=== PATIENT | female | born 1990 | race Caucasian/White ===

== ENCOUNTER → 2017-09-20 | Outpatient (CLI) | payer BC ==
[~2017-09-20] MED LIST: GABA-1220 PO; LEVO50TA6 PO; LNS1 PO; PRAV40TA2 PO; PXL/10 PO
--- NOTE | 2017-09-20 12:22 | DIAGNOSTIC IMAGING REPORT ---
ABD/PELVIS WITHOUT FOR STONE CLINICAL HISTORY: 26 years-old Female presenting with KIDNEY STONES, lower abdominal and right flank pain. TECHNIQUE: Multidetector CT of the abdomen and pelvis was performed without the use of intravenous contrast. IV contrast: None. A dose lowering technique was used consistent with the principles of ALARA (as low as reasonably achievable). COMPARISON: None. CT DOSE (mGy.cm): The estimated cumulative dose is 1786.38 mGy.cm. FINDINGS: Manager Med Surg topogram: Unremarkable. Lung bases: Lungs and pleural spaces clear. Normal heart size. No pericardial or pleural effusion. Liver: Normal morphology. Density consistent with hepatic steatosis. Biliary: No gross biliary ductal dilatation allowing for noncontrast technique. Normal gallbladder. Pancreas: Normal. Spleen: Normal. Adrenal glands: Normal. Kidneys and ureters: Multiple nonobstructing renal calculi noted bilaterally. The largest on the right measuring 3 mm and on the left measuring 3 mm. The remaining calculi are punctate. No hydronephrosis. Normal renal parenchyma allowing for noncontrast technique. Normal ureters. Bladder: Mild circumferential bladder wall thickening suggested. Pelvic organs: An intrauterine device is in place. Otherwise normal appearance of the uterus and ovaries for noncontrast technique. Bowel: Normal appendix. No bowel obstruction. Peritoneal cavity: No free fluid or intraperitoneal gas. Lymph nodes: No gross lymphadenopathy allowing for noncontrast technique. Vasculature: Normal noncontrast appearance. Abdominal wall: Normal. Musculoskeletal: Normal. IMPRESSION: 1. Multiple bilateral nonobstructing renal calculi measuring up to 3 mm on the right and 3 mm on the left. No hydronephrosis. 2. Mild circumferential bladder wall thickening suggested. Correlate with urinalysis to exclude cystitis. 3. Hepatic steatosis. Correlate with liver function tests to exclude steatohepatitis as a cause for abdominal pain. Electronically signed by: Salvatore Correa M.D. 09/20/2017 12:21 PM Dictated Date/Time: 09/20/2017 12:15 PM
== END | disposition home or self-care (01) ==
LOC: C.CTS 11:36 → MERGE 11:36
PROVIDERS: ATTEND Family Medicine
DX: N20.0 Calculus of kidney (principal); K76.0 Fatty (change of) liver, not elsewhere classified; R93.41 Abnormal radiologic findings on diagnostic imaging of renal pelvis, ureter, or bladder

== ENCOUNTER 2017-09-23 20:36 | Emergency (ER) | payer BC ==
[~2017-09-23] VITALS: Ht 165.1 cm; Wt 105.1 kg
[2017-09-23 21:04] VITALS: Ht 165.1 cm; Wt 105.1 kg
[2017-09-23] MEDS ORDERED: ONDANSETRON INJ 2 MG/ML 2 ML VIAL IV STA (22:47)
[2017-09-23] MEDS ORDERED: KETOROLAC TROMETHAMINE 30 MG/ML VIAL IV STA (22:47)
[2017-09-23] MEDS ORDERED: SODIUM CHLORIDE 0.9% 1000ML 1,000 ML IV ONE (23:00)
[2017-09-23 23:17] LABS: BASO % 0.4 %; BASO ABS # 0.04 K/uL (0-0.2); EOS % 1.4 %; EOS ABS # 0.14 K/uL (0-0.5); HEMATOCRIT 40.5 % (37-47); HEMOGLOBIN 14.5 g/dL (12.0-16.0); IG# 0.02 K/uL (0.00-0.02); LYMPH % 37.8 %; MEAN CELL VOLUME 84.7 fL (80-100); MEAN CORPUSCULAR HEMOGLOBIN 30.3 pg (25-34); MEAN CORPUSCULAR HGB CONC 35.8 g/dl (32-36); MONO % 6.5 %; MONO ABS # 0.65 K/uL (0.11-0.59); NEUT % 53.7 %; PLATELET COUNT 282 K/uL (130-400); RED CELL DISTRIBUTION WIDTH CV 12.1 % (11.5-14.5); RED CELL DISTRIBUTION WIDTH SD 37.1 fL (36.4-46.3); WHITE BLOOD COUNT 10.05 K/uL (4.8-10.8)
[2017-09-23] MEDS ORDERED: LNS1 PO (23:25)
[2017-09-23] MEDS ORDERED: PRAV40TA2 PO (23:25)
[2017-09-23] MEDS ORDERED: GABA-1220 PO (23:25)
[2017-09-23] MEDS ORDERED: LEVO50TA6 PO (23:25)
[2017-09-23] MEDS ORDERED: PXL/10 PO (23:25)
[2017-09-23 23:27] LABS: ALBUMIN 4.8 gm/dl (3.4-5.0); CALCIUM 9.9 mg/dl (8.5-10.1); CREATININE 0.76 mg/dl (0.60-1.20); POTASSIUM 3.6 mmol/L (3.5-5.1)
[2017-09-23 23:30] LABS: TOTAL PROTEIN 8.2 gm/dl (6.4-8.2)
[2017-09-24] MEDS ORDERED: NORCO 5/325MG HOME PACK PO ONE (01:15)
[2017-09-24 01:32] VITALS: BP 109/70; PULSE 85; TEMP 37; O2SAT 97
--- NOTE | 2017-09-24 23:11 | EMERGENCY ROOM VISIT NOTE ---
History First contact with patient: 22:38 Chief Complaint: ABDOMINAL PAIN Stated Complaint: PAIN LOWER ABDOMEN AND RIGHT FLANK Nursing Triage Summary: Patient reports lower abdominal pain and right flank pain since last wednesday. Patient had outpatient CT scan wednesday and was told she has multiple stones in kidney and something abnormal on her bladder. Patient tested for bladder infection but came back negative. Patient has also had some vomiting. History of Present Illness The patient is a 26 year old female who presents to the Emergency Room with complaints of right-sided flank pain for the past 5 or 6 days. The patient has a history of kidney stones and had an outpatient CT scan performed 2 days ago without significant findings. The patient has had some dysuria, but evidently also had a normal outpatient UA. She has not been taking anything over-the- counter for her symptoms and rates her current discomfort an 8/10. Her discomfort seems to worsen with certain position changes. She has not had fever or chills. No chest pain, chest tightness, or shortness of breath. Review of Systems More than 10 systems were reviewed and otherwise negative with the exception of history of present illness. Past Medical/Surgical History History of ureteral calculi Family History No pertinent family history Social History Smoking Status: Never Smoker Housing Status: lives with family Current/Historical Medications Scheduled Eszopiclone (Lunesta), 1 MG PO HS Gabapentin (Neurontin), 400 MG PO TID Levothyroxine Sodium (Levothyroxine Sodium), 1 TAB PO DAILY Paroxetine (Paroxetine HCl), 10 MG PO DAILY Pravastatin Sodium (Pravastatin Sodium), 40 MG PO DAILY Physical Exam Vital Signs Date Time Temp Pulse Resp B/P (MAP) Pulse Ox O2 Delivery O2 Flow Rate FiO2 09/24/17 01:32 37.0 85 26 109/70 97 09/24/17 00:11 85 26 97 09/24/17 00:01 109/70 09/23/17 23:57 82 09/23/17 23:56 82 19 96 09/23/17 23:41 84 21 95 09/23/17 23:31 118/78 09/23/17 23:26 71 23 97 09/23/17 23:21 82 21 95 Room Air 09/23/17 23:06 82 94 09/23/17 23:01 132/84 09/23/17 22:53 156/92 09/23/17 21:04 37.0 101 18 133/84 97 Room Air Physical Exam VITALS: Vitals are noted on the nurse's note and reviewed by myself. Vital signs stable. GENERAL: Well-developed, well-nourished, white female, who is in no acute distress and resting comfortably. Patient is cooperative with the examination. HEAD: Normocephalic atraumatic. HEART: Regular rate and rhythm without murmurs gallops or rubs. LUNGS: Clear to auscultation bilaterally without wheezes, rales or rhonchi. No retractions or accessory muscle use. ABDOMEN: Positive normal bowel sounds x 4. Soft, nontender, without masses or organomegaly. No guarding or rebound tenderness. MUSCULOSKELETAL: No muscle atrophy, erythema, or edema noted. Full range of motion without joint tenderness in all extremities. Tenderness appreciated throughout the mid back seems reproducible on palpation. NEURO: Patient was alert and oriented to person place and time. CN II through XII grossly intact. No focal neurological deficits. Medical Decision & Procedures Laboratory Results 09/23/17 22:57 Red Blood Count 4.78, Mean Corpuscular Volume 84.7, Mean Corpuscular Hemoglobin 30.3, Mean Corpuscular Hemoglobin Concent 35.8, Mean Platelet Volume 10.0, Neutrophils (%) (Auto) 53.7, Lymphocytes (%) (Auto) 37.8, Monocytes (%) (Auto) 6.5, Eosinophils (%) (Auto) 1.4, Basophils (%) (Auto) 0.4, Neutrophils # (Auto) 5.40, Lymphocytes # (Auto) 3.80, Monocytes # (Auto) 0.65, Eosinophils # (Auto) 0.14, Basophils # (Auto) 0.04 09/23/17 22:57 Test 09/23/17 22:57 White Blood Count 10.05 K/uL (4.8-10.8) Red Blood Count 4.78 M/uL (4.2-5.4) Hemoglobin 14.5 g/dL (12.0-16.0) Hematocrit 40.5 % (37-47) Mean Corpuscular Volume 84.7 fL (80-100) Mean Corpuscular Hemoglobin 30.3 pg (25-34) Mean Corpuscular Hemoglobin Concent 35.8 g/dl (32-36) Platelet Count 282 K/uL (130-400) Mean Platelet Volume 10.0 fL (7.4-10.4) Neutrophils (%) (Auto) 53.7 % Lymphocytes (%) (Auto) 37.8 % Monocytes (%) (Auto) 6.5 % Eosinophils (%) (Auto) 1.4 % Basophils (%) (Auto) 0.4 % Neutrophils # (Auto) 5.40 K/uL (1.4-6.5) Lymphocytes # (Auto) 3.80 K/uL (1.2-3.4) Monocytes # (Auto) 0.65 K/uL (0.11-0.59) Eosinophils # (Auto) 0.14 K/uL (0-0.5) Basophils # (Auto) 0.04 K/uL (0-0.2) RDW Standard Deviation 37.1 fL (36.4-46.3) RDW Coefficient of Variation 12.1 % (11.5-14.5) Immature Granulocyte % (Auto) 0.2 % Immature Granulocyte # (Auto) 0.02 K/uL (0.00-0.02) Urine Color YELLOW Urine Appearance CLEAR (CLEAR) Urine pH 5.5 (4.5-7.5) Urine Specific [place] 1.023 (1.000-1.030) Urine Protein 1+ (NEG) Urine Glucose (UA) NEG (NEG) Urine Ketones 1+ (NEG) Urine Occult Blood TRACE (NEG) Urine Nitrite NEG (NEG) Urine Bilirubin NEG (NEG) Urine Urobilinogen NEG (NEG) Urine Leukocyte Esterase NEG (NEG) Urine WBC (Auto) 1-5 /hpf (0-5) Urine RBC (Auto) 0-4 /hpf (0-4) Urine Hyaline Casts (Auto) 1-5 /lpf (0-5) Urine Epithelial Cells (Auto) >30 /lpf (0-5) Urine Bacteria (Auto) NEG (NEG) Urine Test NEG (NEG) Anion Gap 12.0 mmol/L (3-11) Est Creatinine Clear Calc Drug Dose 132.6 ml/min Estimated GFR () 123.7 Estimated GFR (Non- 106.8 BUN/Creatinine Ratio 13.3 (10-20) Calcium Level 9.9 mg/dl (8.5-10.1) Total Bilirubin 1.8 mg/dl (0.2-1) Aspartate Amino Transf (AST/SGOT) 37 U/L (15-37) Alanine Aminotransferase (ALT/SGPT) 66 U/L (12-78) Alkaline Phosphatase 50 U/L (45-117) Total Protein 8.2 gm/dl (6.4-8.2) Albumin 4.8 gm/dl (3.4-5.0) Globulin 3.4 gm/dl (2.5-4.0) Albumin/Globulin Ratio 1.4 (0.9-2) Lipase 87 U/L (73-393) Medications Administered Medications (Trade) Dose Ordered Sig/Mahin Route Start Time Stop Time Status Last Admin Dose Admin Sodium Chloride 1,000 ml @ 999 mls/hr Q1H1M ONCE IV 09/23/17 23:00 09/24/17 00:00 DC 09/23/17 23:23 999 MLS/HR Ketorolac Tromethamine (Toradol Inj) 30 mg NOW STAT IV 09/23/17 22:47 09/23/17 22:49 DC 09/23/17 23:24 30 MG Ondansetron HCl (Zofran Inj) 4 mg NOW STAT IV 09/23/17 22:47 09/23/17 22:49 DC 09/23/17 23:25 4 MG Acetaminophen/ Hydrocodone Bitart (Sidney 5/325mg Home Pack) 1 homepack UD ONCE PO 09/24/17 01:15 09/24/17 01:16 DC 09/24/17 01:15 1 HOMEPACK ED Course Physical exam and history were performed. Nursing notes, EMR, and Medication List were personally reviewed. Patient appears to have reports of continued right flank pain for the past week. Her symptoms and I distinct the worse than they have been previously, and may actually be improved from 3 days ago when she had outpatient CAT scan. CAT scan was performed at this facility and was available for my review. This did reveal multiple intrarenal calculi but no ureteral calculi. IV access was established and labs were obtained. The patient was hydrated and medicated as above. Urine was collected. The patient does not have a significantly elevated white blood cell count or gross anemia, bandemia, or significant electrolyte imbalance. Her urine is without gross blood or calcium oxalate. Lipase and transaminases are nondiagnostic. On reevaluation the patient felt much better after fluids and Toradol. She was rating her discomfort a 2/10, and was very comfortable with this. I do not feel that additional CT imaging is necessary at this time as the patient does not have gross signs of infection or obvious stone. She may be passing very small stones or have a more musculoskeletal etiology of her symptoms. I will wait on a urine culture before starting antibiotics. Ultimately the patient needs to follow with urology, and evidently has an upcoming appointment with them in a few weeks. The patient will be given a home pack of Vicodin and invited back to the ER with any new, worsening, or concerning symptoms. The chart was completed utilizing [employer] Speech Voice Recognition Software. Grammatical errors, random word insertions, pronoun errors, and incomplete sentences are an occasional consequence of this system due to software limitations, ambient noise, and hardware issues. Any formal questions or concerns about the content, text, or information contained within the body of this dictation should be directly addressed to the provider for clarification. . Medical Decision Differential diagnosis: Etiologies such as renal colic, appendicitis, diverticulitis, mesenteric ischemia, aortic pathology, infections, inflammatory bowel disease, PUD, biliary pathology, UTI, as well as others were entertained. Impression Primary Impression: Right flank pain Departure Information Dispostion Home / Self-Care Condition GOOD Forms HOME CARE DOCUMENTATION FORM, IMPORTANT VISIT INFORMATION Patient Instructions My [facility] Additional Instructions You were seen and evaluated today on an emergency basis only. This is not a substitute for, or an effort to provide, complete comprehensive medical care. It is not possible to recognize and treat all injuries or illnesses in a single emergency department visit. For this reason it is recommended that you followup with your primary care physician next week for recheck of her condition. Please keep your upcoming appointment with urology. For baseline pain relief you may alternate ibuprofen and acetaminophen every 4 hours for pain control. Take 600 mg ibuprofen (Advil) and then 4 hours later take 1000 mg acetaminophen (Tylenol). Do not take more than 3000 mg acetaminophen in a single day. Sidney (hydrocodone/acetaminophen) 5/325 mg (homepack) every 6 hours as needed for worsening breakthrough pain. Do not drink or drive on [place]. This medication will likely make you tired. Do not take Sidney and Tylenol at the same time as both contain acetaminophen. Sidney may cause constipation. You may wish to take an [id number] stool softener like Colace if this occurs. You are welcome to return to the emergency department anytime with new, worsening, or concerning symptoms.
== END 2017-09-24 01:33 | disposition home or self-care (01) ==
LOC: MERGE 20:37 → C.EDB 20:37 → C.EDC 09-24 01:33
DX: R10.9 Unspecified abdominal pain (principal); R30.0 Dysuria; Z79.899 Other long term (current) drug therapy; Z87.442 Personal history of urinary calculi

== ENCOUNTER → 2017-10-26 | Outpatient (CLI) | payer BC ==
--- NOTE | 2017-10-26 16:02 | DIAGNOSTIC IMAGING REPORT ---
KUB CLINICAL HISTORY: NEPHROLITHIASIS COMPARISON STUDY: CT scan dated 09/20/2017 FINDINGS: There is no pathologic bowel dilatation. An IUD is visualized. The renal shadows are partially obscured by overlying bowel gas and fecal material. No definite renal calculi are visualized. IMPRESSION: The patient's previously described bilateral renal calculi are not visualized with certainty on conventional radiographic imaging . Electronically signed by: Xiang Hager M.D. 10/26/2017 4:01 PM Dictated Date/Time: 10/26/2017 4:00 PM
== END | disposition home or self-care (01) ==
LOC: C.RAD 15:28
PROVIDERS: ATTEND Urology
DX: N20.0 Calculus of kidney (principal)

== ENCOUNTER → 2017-11-05 | Outpatient (CLI) | payer BC ==
[2017-11-05 17:14] LABS: ALBUMIN 4.7 gm/dl (3.4-5.0); BLOOD UREA NITROGEN 12 mg/dl (7-18); CALCIUM 9.9 mg/dl (8.5-10.1); CARBON DIOXIDE 24 mmol/L (21-32); CREATININE 0.62 mg/dl (0.60-1.20); GLUCOSE 73 mg/dl (70-99); POTASSIUM 3.6 mmol/L (3.5-5.1); SODIUM 137 mmol/L (136-145)
[2017-11-05 17:15] LABS: PHOSPHORUS 3.2 mg/dl (2.5-4.9)
== END | disposition home or self-care (01) ==
LOC: C.LAB1850 14:06
PROVIDERS: ATTEND Internal Medicine Nephrology
DX: N20.0 Calculus of kidney (principal); E55.9 Vitamin D deficiency, unspecified

== ENCOUNTER 2017-11-22 12:28 | Emergency (ER) | payer BC ==
[~2017-11-22] VITALS: Ht 165.1 cm; Wt 109.1 kg
[2017-11-22 12:31] VITALS: TEMP 36.7; Ht 165.1 cm; Wt 109.1 kg
[2017-11-22] MEDS ORDERED: KETOROLAC TROMETHAMINE 30 MG/ML VIAL IV STA (13:06)
[2017-11-22] MEDS ORDERED: SODIUM CHLORIDE 0.9% 1000ML 1,000 ML IV STA (13:06)
[2017-11-22] MEDS ORDERED: ONDANSETRON INJ 2 MG/ML 2 ML VIAL IV STA (13:06)
--- NOTE | 2017-11-22 13:08 | EMERGENCY ROOM VISIT NOTE ---
History Report prepared by Loyda: Tavo Hamilton Under the Supervision of: Dr. Hung Lehman M.D. First contact with patient: 13:00 Chief Complaint: VOMITING Stated Complaint: THREW UP BLOOD AND BLACK STUFF AFTER EATING Nursing Triage Summary: Pt ambulatory to triage stating, "I haven't felt well since last week. I thought I had the stomach bug, I rested and felt better. I threw up last night and it was normal. I almost feel like I have the worst hangover of my life, but I only had 2 drinks on Sat night. I ate a plain turkey sandwich and five mins later I threw it up. There was bright red blood and black stuff- it looked like coffee grounds. It's been a struggle to poop. I just feel tired and weak. I have burning in my throat. My head is pounding." History of Present Illness The patient is a 27 year old female who presents to the Emergency Room with complaints of a blood-producing vomiting episode that occurred this afternoon after eating a sandwich. The patient states that she had a very bland [employer] sandwich, and 5 minutes later vomited. This emesis contained a noticeable amount of blood. She does not have any abdominal pain currently, but did experience a "pressure" sensation before vomiting earlier today. She notes that she did wake up feeling like she had a "stomach bug" last week, which has slowly improved on its own. The patient has a history of hypothyroid. She denies any chest pain at this time. Source of History: patient Onset: This afternoon Position: abdomen Quality: pressure (pain in the abodmen before vomiting), other (Vomiting, Hematemesis) Timing: other (one episode) Associated Symptoms: No chest pain Review of Systems See HPI for pertinent positives & negatives. A total of 10 systems reviewed and were otherwise negative. Past Medical & Surgical Medical Problems: (1) ADHD (2) Anxiety (3) Bronchitis (4) High cholesterol (5) Kidney stones ADHD Anxiety High cholesterol Family History Cancer Diabetes mellitus Hypertension Kidney disease Kidney stones Social History Smoking Status: Never Smoker Housing Status: lives with family Current/Historical Medications Scheduled Dicyclomine Hcl (Bentyl), 10 MG PO TID Eszopiclone (Lunesta), 1 MG PO HS Gabapentin (Neurontin), 400 MG PO TID Levothyroxine Sodium (Levothyroxine Sodium), 50 MCG PO DAILY Ondasetron Odt (Zofran Odt), 4 MG SL Q6H Paroxetine (Paroxetine HCl), 10 MG PO DAILY Pravastatin Sodium (Pravastatin Sodium), 40 MG PO DAILY Allergies Coded Allergies: Aloe (Verified Allergy, Severe, blisters, 11/22/17) Uncoded Allergies: CORN (Allergy, Unknown, GI SYMPTOMS, 09/24/17) SEAFOOD (Allergy, Unknown, GI SYMPTOMS, 09/24/17) Physical Exam Vital Signs Date Time Temp Pulse Resp B/P (MAP) Pulse Ox O2 Delivery O2 Flow Rate FiO2 11/22/17 15:08 60 20 147/87 100 11/22/17 15:08 60 20 147/87 100 Room Air 11/22/17 14:07 69 20 136/91 11/22/17 12:31 36.7 73 18 147/87 95 Room Air Physical Exam GENERAL: Awake, alert, well-appearing, in no acute distress HENT: Normocephalic, atraumatic. Oropharynx unremarkable. EYES: Normal conjunctiva. Sclera non-icteric. NECK: Supple. No nuchal rigidity. FROM. No JVD. RESPIRATORY: Clear to auscultation. CARDIAC: Regular rate, normal rhythm. Extremities warm and well perfused. Pulses equal. ABDOMEN: Soft, non-distended. No tenderness to palpation. No rebound or guarding. No masses. RECTAL: Deferred. MUSCULOSKELETAL: Chest examination reveals no tenderness. The back is symmetrical on inspection without obvious abnormality. There is no CVA tenderness to palpation. No joint edema. LOWER EXTREMITIES: Calves are equal size bilaterally and non-tender. No edema. No discoloration. NEURO: Normal sensorium. No sensory or motor deficits noted. SKIN: No rash or jaundice noted. Medical Decision & Procedures ER Provider Diagnostic Interpretation: Radiology results as stated below per my review and radiologist interpretation: ABDOMEN 2VIEW W/PA CHEST RTN CLINICAL HISTORY: Diffuse abdominal pain. Bloody emesis. COMPARISON STUDY: Supine abdomen dated 10/26/2017 FINDINGS: The erect chest reveals no evidence of free air. There is no evidence of focal pulmonary consolidation.] Erect and supine views of the abdomen reveal no abnormally dilated loops of large or small bowel. There are no transition zone to indicate bowel obstruction. There is a thoracolumbar scoliosis. An IUD is visualized within the pelvis. There are punctate bilateral renal calculi. IMPRESSION: 1. No evidence of bowel obstruction. No evidence of free air. 2. Punctate bilateral renal calculi Electronically signed by: Xiang Hager M.D. 11/22/2017 2:30 PM Dictated Date/Time: 11/22/2017 2:29 PM Laboratory Results 11/22/17 13:22 Red Blood Count 4.54, Mean Corpuscular Volume 84.1, Mean Corpuscular Hemoglobin 30.2, Mean Corpuscular Hemoglobin Concent 35.9, Mean Platelet Volume 9.7, Neutrophils (%) (Auto) 55.3, Lymphocytes (%) (Auto) 35.5, Monocytes (%) (Auto) 7.1, Eosinophils (%) (Auto) 1.8, Basophils (%) (Auto) 0.2, Neutrophils # (Auto) 4.86, Lymphocytes # (Auto) 3.12, Monocytes # (Auto) 0.62, Eosinophils # (Auto) 0.16, Basophils # (Auto) 0.02 11/22/17 13:22 Test 11/22/17 13:22 White Blood Count 8.79 K/uL (4.8-10.8) Red Blood Count 4.54 M/uL (4.2-5.4) Hemoglobin 13.7 g/dL (12.0-16.0) Hematocrit 38.2 % (37-47) Mean Corpuscular Volume 84.1 fL (80-100) Mean Corpuscular Hemoglobin 30.2 pg (25-34) Mean Corpuscular Hemoglobin Concent 35.9 g/dl (32-36) Platelet Count 266 K/uL (130-400) Mean Platelet Volume 9.7 fL (7.4-10.4) Neutrophils (%) (Auto) 55.3 % Lymphocytes (%) (Auto) 35.5 % Monocytes (%) (Auto) 7.1 % Eosinophils (%) (Auto) 1.8 % Basophils (%) (Auto) 0.2 % Neutrophils # (Auto) 4.86 K/uL (1.4-6.5) Lymphocytes # (Auto) 3.12 K/uL (1.2-3.4) Monocytes # (Auto) 0.62 K/uL (0.11-0.59) Eosinophils # (Auto) 0.16 K/uL (0-0.5) Basophils # (Auto) 0.02 K/uL (0-0.2) RDW Standard Deviation 37.6 fL (36.4-46.3) RDW Coefficient of Variation 12.3 % (11.5-14.5) Immature Granulocyte % (Auto) 0.1 % Immature Granulocyte # (Auto) 0.01 K/uL (0.00-0.02) Urine Color YELLOW Urine Appearance CLEAR (CLEAR) Urine pH 6.5 (4.5-7.5) Urine Specific [place] 1.019 (1.000-1.030) Urine Protein NEG (NEG) Urine Glucose (UA) NEG (NEG) Urine Ketones NEG (NEG) Urine Occult Blood NEG (NEG) Urine Nitrite NEG (NEG) Urine Bilirubin NEG (NEG) Urine Urobilinogen NEG (NEG) Urine Leukocyte Esterase NEG (NEG) Anion Gap 6.0 mmol/L (3-11) Est Creatinine Clear Calc Drug Dose 143.7 ml/min Estimated GFR () 133.4 Estimated GFR (Non- 115.1 BUN/Creatinine Ratio 13.6 (10-20) Calcium Level 9.5 mg/dl (8.5-10.1) Total Bilirubin 0.9 mg/dl (0.2-1) Direct Bilirubin 0.1 mg/dl (0-0.2) Aspartate Amino Transf (AST/SGOT) 40 U/L (15-37) Alanine Aminotransferase (ALT/SGPT) 86 U/L (12-78) Alkaline Phosphatase 72 U/L (45-117) Total Protein 7.8 gm/dl (6.4-8.2) Albumin 4.3 gm/dl (3.4-5.0) Lipase 117 U/L (73-393) Human Chorionic Gonadotropin, Qual NEG (NEG) Labs reviewed by ED physician. Medications Administered Medications (Trade) Dose Ordered Sig/Mahin Route Start Time Stop Time Status Last Admin Dose Admin Ketorolac Tromethamine (Toradol Inj) 30 mg NOW STAT IV 11/22/17 13:06 11/22/17 13:08 DC 11/22/17 13:27 30 MG Ondansetron HCl (Zofran Inj) 4 mg NOW STAT IV 11/22/17 13:06 11/22/17 13:08 DC 11/22/17 13:27 4 MG Sodium Chloride 1,000 ml @ 999 mls/hr Q1H1M STAT IV 11/22/17 13:06 11/22/17 14:06 DC 11/22/17 13:26 999 MLS/HR Dicyclomine HCl (Bentyl Inj) 20 mg NOW STAT IM 11/22/17 14:28 11/22/17 14:29 DC 11/22/17 14:54 20 MG ED Course 1301: Past medical records reviewed. The patient was evaluated in room C5. A complete history and physical examination was performed. 1306: Ordered Sodium Chloride 1000 mL @ 999 mL/hr IV, Zofran 4 mg , Toradol 30 mg IV. 1411: The nursing staff has informed me that the patient is experiencing an increase in abdominal pain. 1428: Ordered Bentyl Inj 20 mg IM. 1452: Upon reexamination the patient is resting in bed. I discussed results and treatment plan with the patient. She verbalizes agreement and understanding. The patient is ready for discharge. Medical Decision Differential diagnosis: Etiologies such as gastroenteritis, food borne illness, infections, appendicitis , diverticulitis, inflammatory bowel disease, obstruction, GI bleed, biliary pathology, as well as others were entertained. This is a 27-year-old female who presents emergency department complaining of vomiting. Serial abdominal examinations were performed on the patient in the emergency department and at no time to the patient exhibited abdominal tenderness. In addition based on the patient's CBC which is normal renal profile liver profile lipase and using shared medical decision making with the patient we felt that a CT scan will not provide much of a diagnosis. For this reason we will defer it based on radiation concerns. Patient was given Toradol , Zofran along with a normal saline bolus. Repeat examination revealed improvement in the patient's symptoms. I do believe that the patient is well enough to be discharged home. I encouraged her to take Zofran. Patient was in agreement with the treatment plan. Medication Reconcilliation Current Medication List: was personally reviewed by me Blood Pressure Screening Patient's blood pressure: Elevated blood pressure Blood pressure disposition: Elevated BP felt to be situational Impression Primary Impression: Gastroenteritis Scribe Attestation The scribe's documentation has been prepared under my direction and personally reviewed by me in its entirety. I confirm that the note above accurately reflects all work, treatment, procedures, and medical decision making performed by me. Departure Information Dispostion Home / Self-Care Prescriptions Dicyclomine Hcl (BENTYL) 10 Mg Cap 10 MG PO TID, #21 CAP Prov: Hung Lehman MD 11/22/17 Ondasetron Odt (ZOFRAN ODT) 4 Mg Tab 4 MG SL Q6H for Nausea, #6 TAB Prov: Hung Lehman MD 11/22/17 Referrals Elena Phillip MD (PCP) Forms HOME CARE DOCUMENTATION FORM, IMPORTANT VISIT INFORMATION Patient Instructions My [facility] Additional Instructions You have been examined and treated today on an emergency basis only. This is not a substitute for, or an effort to provide, complete comprehensive medical care. It is impossible to recognize and treat all injuries or illnesses in a single emergency department visit. It is therefore important that you follow up closely with Dr Phillip. Call as soon as possible for an appointment. Thank you for your time and consideration. I look forward to speaking with you again soon. Please don't hesitate to call us if you have any questions.
[2017-11-22 13:38] LABS: BASO % 0.2 %; BASO ABS # 0.02 K/uL (0-0.2); EOS % 1.8 %; EOS ABS # 0.16 K/uL (0-0.5); HEMATOCRIT 38.2 % (37-47); HEMOGLOBIN 13.7 g/dL (12.0-16.0); IG# 0.01 K/uL (0.00-0.02); LYMPH % 35.5 %; LYMPH ABS # 3.12 K/uL (1.2-3.4); MEAN CELL VOLUME 84.1 fL (80-100); MEAN CORPUSCULAR HEMOGLOBIN 30.2 pg (25-34); MEAN CORPUSCULAR HGB CONC 35.9 g/dl (32-36); MEAN PLATELET VOLUME 9.7 fL (7.4-10.4); MONO % 7.1 %; MONO ABS # 0.62 K/uL (0.11-0.59); NEUT % 55.3 %; NEUT ABS # 4.86 K/uL (1.4-6.5); PLATELET COUNT 266 K/uL (130-400); RED CELL DISTRIBUTION WIDTH CV 12.3 % (11.5-14.5); RED CELL DISTRIBUTION WIDTH SD 37.6 fL (36.4-46.3); WHITE BLOOD COUNT 8.79 K/uL (4.8-10.8)
[2017-11-22 13:54] LABS: ALBUMIN 4.3 gm/dl (3.4-5.0); CALCIUM 9.5 mg/dl (8.5-10.1); CREATININE 0.71 mg/dl (0.60-1.20); POTASSIUM 3.8 mmol/L (3.5-5.1)
[2017-11-22 13:57] LABS: TOTAL PROTEIN 7.8 gm/dl (6.4-8.2)
[2017-11-22] MEDS ORDERED: DICYCLOMINE HCL 10 MG/ML 2 ML AMP IM STA (14:28)
--- NOTE | 2017-11-22 14:32 | DIAGNOSTIC IMAGING REPORT ---
ABDOMEN 2VIEW W/PA CHEST RTN CLINICAL HISTORY: Diffuse abdominal pain. Bloody emesis. COMPARISON STUDY: Supine abdomen dated 10/26/2017 FINDINGS: The erect chest reveals no evidence of free air. There is no evidence of focal pulmonary consolidation.] Erect and supine views of the abdomen reveal no abnormally dilated loops of large or small bowel. There are no transition zone to indicate bowel obstruction. There is a thoracolumbar scoliosis. An IUD is visualized within the pelvis. There are punctate bilateral renal calculi. IMPRESSION: 1. No evidence of bowel obstruction. No evidence of free air. 2. Punctate bilateral renal calculi Electronically signed by: Xiang Hager M.D. 11/22/2017 2:30 PM Dictated Date/Time: 11/22/2017 2:29 PM
[2017-11-22] MEDS ORDERED: DICY10CA55 PO (14:40)
[2017-11-22] MEDS ORDERED: ONDA4TAB10 SL (14:40)
[2017-11-22 15:08] VITALS: BP 147/87; PULSE 60; O2SAT 100
[2017-11-22] MEDS ORDERED: LEVO50TA6 PO (23:25)
[2017-11-22] MEDS ORDERED: LNS1 PO (23:25)
[2017-11-22] MEDS ORDERED: PXL/10 PO (23:25)
[2017-11-22] MEDS ORDERED: PRAV40TA2 PO (23:25)
[2017-11-22] MEDS ORDERED: GABA-1220 PO (23:25)
== END 2017-11-22 15:10 | disposition home or self-care (01) ==
LOC: C.EDB 12:30 → C.EDC 15:10
DX: K52.9 Noninfective gastroenteritis and colitis, unspecified (principal); N20.0 Calculus of kidney; F90.9 Attention-deficit hyperactivity disorder, unspecified type; F41.9 Anxiety disorder, unspecified; E78.00 Pure hypercholesterolemia, unspecified; Z79.899 Other long term (current) drug therapy; Z91.013 Allergy to seafood; Z88.8 Allergy status to other drugs, medicaments and biological substances

== ENCOUNTER → 2017-12-01 | Outpatient (CLI) | payer BC ==
[~2017-12-01] MED LIST changes: +DICY10CA55 PO; +ONDA4TAB10 SL
== END | disposition home or self-care (01) ==
LOC: C.PAPS 14:07
PROVIDERS: ATTEND Obstetrics & Gynecology
DX: Z01.419 Encounter for gynecological examination (general) (routine) without abnormal findings (principal); R87.610 Atypical squamous cells of undetermined significance on cytologic smear of cervix (ASC-US)

== ENCOUNTER → 2017-12-17 | Outpatient (CLI) | payer BC ==
[~2017-12-17] MED LIST changes: -DICY10CA55 PO
[2017-12-17 15:03] LABS: ALBUMIN 4.4 gm/dl (3.4-5.0)
[2017-12-17 15:17] LABS: TOTAL PROTEIN 7.7 gm/dl (6.4-8.2)
== END | disposition home or self-care (01) ==
LOC: C.LAB1850 13:14
PROVIDERS: ATTEND Neuromusculoskeletal Medicine & OMM
DX: E03.9 Hypothyroidism, unspecified (principal); E78.5 Hyperlipidemia, unspecified; E66.9 Obesity, unspecified

== ENCOUNTER → 2018-03-10 | Outpatient (CLI) | payer BC ==
[~2018-03-10] MED LIST changes: +HYDR-5688 PO; -PRAV40TA2 PO
== END | disposition home or self-care (01) ==
LOC: C.LABSPEC 13:13
PROVIDERS: ATTEND Obstetrics & Gynecology
DX: Z34.01 Encounter for supervision of normal first pregnancy, first trimester (principal)

== ENCOUNTER → 2018-03-15 | Outpatient (CLI) | payer BC ==
[2018-03-15 10:35] LABS: BASO % 0.2 %; BASO ABS # 0.02 K/uL (0-0.2); EOS % 1.6 %; EOS ABS # 0.14 K/uL (0-0.5); HEMATOCRIT 38.1 % (37-47); HEMOGLOBIN 13.1 g/dL (12.0-16.0); IG# 0.03 K/uL (0.00-0.02); LYMPH % 25.6 %; LYMPH ABS # 2.31 K/uL (1.2-3.4); MEAN CELL VOLUME 86.8 fL (80-100); MEAN CORPUSCULAR HEMOGLOBIN 29.8 pg (25-34); MEAN CORPUSCULAR HGB CONC 34.4 g/dl (32-36); MEAN PLATELET VOLUME 10.1 fL (7.4-10.4); MONO % 5.2 %; MONO ABS # 0.47 K/uL (0.11-0.59); NEUT % 67.1 %; NEUT ABS # 6.06 K/uL (1.4-6.5); PLATELET COUNT 314 K/uL (130-400); RED CELL DISTRIBUTION WIDTH CV 12.3 % (11.5-14.5); RED CELL DISTRIBUTION WIDTH SD 39.2 fL (36.4-46.3); WHITE BLOOD COUNT 9.03 K/uL (4.8-10.8)
== END | disposition home or self-care (01) ==
LOC: C.LAB1850 09:22
PROVIDERS: ATTEND Obstetrics & Gynecology
DX: Z34.01 Encounter for supervision of normal first pregnancy, first trimester (principal)

== ENCOUNTER 2018-10-06 18:31 | Inpatient (IN) ==
[2018-10-06 20:15] LABS: Basophils # (auto) 0.02 K/uL (0-0.2); Basophils % (auto) 0.2 %; Eosinophils # (auto) 0.56 K/uL (0-0.5); Eosinophils % (auto) 5.1 %; Hematocrit (blood only) 33.6 % (37-47); Hemoglobin 11.4 g/dL (12.0-16.0); Immature Granulocytes # (auto) 0.09 K/uL (0.00-0.02); Immature Granulocytes % (auto) 0.8 %; Lymphocytes # (auto) 2.17 K/uL (1.2-3.4); Lymphocytes % (auto) 19.9 %; Mean Corpuscular Volume 83.2 fL (80-100); Mean Platelet Volume 11.4 fL (7.4-10.4); Monocytes # (auto) 1.13 K/uL (0.11-0.59); Monocytes % (auto) 10.4 %; Neutrophils # (auto) 6.92 K/uL (1.4-6.5); Neutrophils % (auto) 63.6 %; Platelet Count 158 K/uL (130-400); RDW Coefficient of Variation 14.9 % (11.5-14.5); RDW Standard Deviation 45.3 fL (36.4-46.3); Red Blood Count 4.04 M/uL (4.2-5.4); White Blood Count 10.89 K/uL (4.8-10.8)
[2018-10-06 20:16] LABS: Mean Corpuscular Hgb Conc 33.9 g/dL (32-36)
[2018-10-06] MEDS ORDERED: LACTATED RINGER'S 1,000 ML IV PRN ×2 (20:27→20:30)
[2018-10-06 20:29] LABS: Total Protein Urine Random 483.2 mg/dl (0-11.9)
[2018-10-06] MEDS ORDERED: OXYTOCIN 30 UNITS/500 ML BAG IV PRN (20:30)
[2018-10-06 20:37] LABS: Alanine Aminotransferase 19 U/L (12-78); Aspartate Aminotransferase 21 U/L (15-37); Est GFR (African American) > 150.0; Est GFR (Non-African American) 131.7
--- NOTE | 2018-10-06 20:42 | History & Physical Report ---
Date of Service October 06, 2018 Patient is a 27 yo white female EDC 10/16/18 who presents with possible SROM at 38+weeks. She is not ruptured but BP's have been elevated since her arrival ranging from 136/99 to 188/98. urine protein is +1. PIH labs are all normal at this time. She currently has a headache but this is a chronic issue for her. No other PIH symptoms except that swelling has increased over the past week. 24 urine protein on 08/20/18 was 473 mg. This result along with the persistently elevated blood pressures tonight , concern for macrosomia on ultrasound with a favorable cervix. we will proceed with induction of labor tonight. was also complicated by GDM on insulin, chronic insomnia, hypothyroidism, & chronic nausea & vomiting. GBS negative. Blood type O positive. Assessment & Plan (1) Pre-eclampsia during in third trimester, antepartum: iup at 38+ weeks with pre-eclampsia by BP parameters & proteinuria criteria suspected macrosomia with GDM on insulin will begin IOL with pitocin patient is agreeable to this plan antcipate vaginal delivery History of Present Illness Primary Care Provider: Thien Gonzales DO Allergies Allergy/AdvReac Type Severity Reaction Status Date / Time aloe Allergy Severe blisters Verified 09/12/18 11:27 corn Allergy Gastrointestinal Verified 09/12/18 11:27 Upset fish derived Allergy Gastrointestinal Verified 09/12/18 11:27 Upset peas Allergy Gastrointestinal Verified 09/12/18 11:27 Upset shellfish derived Allergy Gastrointestinal Verified 09/12/18 11:26 Upset Home Medications Home Medications Medication Instructions Recorded Confirmed Type PNV cmb#95-ferrous fumarate-FA 1 tab PO DAILY 05/20/18 10/06/18 History [] ergocalciferol (vitamin D2) 50,000 units PO WK 05/20/18 10/06/18 History [Vitamin D2] levothyroxine 125 mcg PO QAM 05/20/18 10/06/18 History paroxetine HCl 10 mg PO HS 05/20/18 10/06/18 History famotidine 20 mg PO HS PRN 07/27/18 10/06/18 History albuterol sulfate 1.25 mg INHALATION QID PRN 08/12/18 10/06/18 History albuterol sulfate 2 puff INHALATION Q6H PRN 08/12/18 10/06/18 History epinephrine 0.3 mg IM UD PRN 08/12/18 10/06/18 History wnvu-ats-cqe-blkbor-om 3,6,9 5 1 cap PO DAILY 08/12/18 10/06/18 History [[place] 3-6-9 Fatty Acids] insulin NPH isoph U-100 human 90 unit SUBCUT HS 08/12/18 10/06/18 History [Humulin N NPH Insulin KwikPen] insulin lispro [Humalog KwikPen 40 unit SUBCUT .WITH LUNCH 08/12/18 10/06/18 History Insulin] insulin lispro [Humalog KwikPen 45 unit SUBCUT . WITH SUPPER 08/12/18 10/06/18 History Insulin] insulin lispro [Humalog KwikPen 45 units SUBCUT .WITH BREAKFAST 08/12/18 10/06/18 History Insulin] ssqbwarfnr-foiqgbvnxryek-pydz 1 - 2 cap PO Q4H PRN 09/12/18 10/06/18 History [Fioricet] promethazine 25 mg PO Q6H PRN 09/12/18 10/06/18 History Patient History Social History Preferred Language: Yemeni marital status: Feels Safe at Home: No Smoking Status: Never smoker Hx Alcohol Use: No Hx Substance Use: No Review of Systems All systems reviewed & are unremarkable except as noted in HPI & below Physical Exam Vital Signs (Past 24 Hours): Last Vital Signs Temp 37.0 C 10/06/18 18:57 Pulse 94 H 10/06/18 19:36 Resp 20 10/06/18 18:57 BP 188/98 H 10/06/18 19:36 Constitutional: WD/WN, vitals as above Respiratory: normal respiratory effort Cardiovascular: RRR, no murmur, no edema Rate/Rhythm: regular rate and regular rhythm Extremities: + edema (1+ in pedal edema) Genitourinary: OB Exam Abdomen: + vertex, + estimated weight (8-9 pounds), + regular contractions and + irregular contractions Manual OB Exam: + cervical dilation 4 cm, + cervical effacement 70% and + station -1 OB Exam Monitor Tracing: + external FHT monitor used, + external uterine monitor used and + category I
[2018-10-06] MEDS: LACTATED RINGER'S 1,000 ML IV SCH (23:50)
[2018-10-07] MEDS ORDERED: ePHEDrine sulfate 50 MG/ML AMP ONE ×2 (02:44→08:49)
[2018-10-07] MEDS ORDERED: BUPIVACAINE 0.25% 30 ML VIAL ONE ×4 (02:44→10:58)
[2018-10-07] MEDS ORDERED: fentaNYL 2MCG/ML ROPIV 1.25MG/ML 100 ML BAG EPI ONE ×2 (02:45→08:49)
[2018-10-07] MEDS ORDERED: fentaNYL citrate 100 MCG/2 ML VIAL ONE ×6 (02:45→19:38)
--- NOTE | 2018-10-07 03:19 | Anesthesiology Consultation ---
Date of Service October 07, 2018 Assessment & Plan Chart Review Chart Review: Patient NOT seen in Pre Admission Testing and Acceptable Risk for Labor Epidural Consults Requested none ASA ASA3 Proposed Anesthesia Anesthesia Type: Labor Epidural Risk / Benefits Reviewed With: PT / POA / Parent / Guardian, Accepts Plan and Informed Consent Obtained NPO Date Last Intake of Fluids: 10/07/18 Time Last Intake of Fluids: 03:00 Date Last Intake of Solids: 10/06/18 Time Last Intake of Solids: 17:30 History Height/Weight Height: 1.65 m Weight: 126.099 kg Allergies Allergy/AdvReac Type Severity Reaction Status Date / Time aloe Allergy Severe blisters Verified 09/12/18 11:27 corn Allergy Gastrointestinal Verified 09/12/18 11:27 Upset fish derived Allergy Gastrointestinal Verified 09/12/18 11:27 Upset peas Allergy Gastrointestinal Verified 09/12/18 11:27 Upset shellfish derived Allergy Gastrointestinal Verified 09/12/18 11:26 Upset Medications Home Medications Medication Instructions Recorded Confirmed Last Taken PNV cmb#95-ferrous fumarate-FA 1 tab PO DAILY 05/20/18 10/06/18 10/05/18 22:00 [] ergocalciferol (vitamin D2) 50,000 units PO WK 05/20/18 10/06/18 1 Week Ago [Vitamin D2] ~09/29/18 levothyroxine 125 mcg PO QAM 05/20/18 10/06/18 10/06/18 paroxetine HCl 10 mg PO HS 05/20/18 10/06/18 10/05/18 22:00 famotidine 20 mg PO HS PRN 07/27/18 10/06/18 10/05/18 22:00 albuterol sulfate 1.25 mg INHALATION QID PRN 08/12/18 10/06/18 Unknown albuterol sulfate 2 puff INHALATION Q6H PRN 08/12/18 10/06/18 Unknown epinephrine 0.3 mg IM UD PRN 08/12/18 10/06/18 Unknown ffep-hdc-wdv-blkbor-om 3,6,9 5 1 cap PO DAILY 08/12/18 10/06/18 10/05/18 22:00 [[place] 3-6-9 Fatty Acids] insulin NPH isoph U-100 human 90 unit SUBCUT HS 08/12/18 10/06/18 10/05/18 22:00 [Humulin N NPH Insulin KwikPen] insulin lispro [Humalog KwikPen 40 unit SUBCUT .WITH LUNCH 08/12/18 10/06/18 10/06/18 12:00 Insulin] insulin lispro [Humalog KwikPen 45 unit SUBCUT . WITH SUPPER 08/12/18 10/06/18 10/06/18 17:00 Insulin] insulin lispro [Humalog KwikPen 45 units SUBCUT .WITH BREAKFAST 08/12/18 10/06/18 10/06/18 08:00 Insulin] xtpfatycly-nxwgawwpqbohi-hbod 1 - 2 cap PO Q4H PRN 09/12/18 10/06/18 10/05/18 22:00 [Fioricet] promethazine 25 mg PO Q6H PRN 09/12/18 10/06/18 10/06/18 14:00 Active Medications Generic Name Dose Route Start Last Admin Trade Name Freq PRN Reason Stop Dose Admin Lactated Ringer's 1,000 mls @ 125 mls/hr 10/06/18 20:30 10/07/18 02:37 Lr IV 10/08/18 20:29 999 mls/hr .Q8H AMARIS Infusion Oxytocin 30 units in 500 mls @ 7 mls/hr 10/06/18 20:30 10/07/18 02:00 Pitocin IV 10/08/18 20:29 0.42 units/hr .Q24H PRN 7 mls/hr Labor Induction/Augmentation Titration Protocol 0.42 UNITS/HR Past Medical History Medical History High cholesterol (Chronic) ADHD (Chronic) Anxiety (Chronic) Calculus of proximal right ureter (Acute) Renal colic (Acute) Asthma GERD (gastroesophageal reflux disease) ASCUS with positive high risk HPV cervical Dental root implant present Gestational diabetes Hypothyroidism Insomnia [place] teeth removed Past Family History Family History Other Diabetes HTN (hypertension) Past Surgical History Surgical History Hx of breast reduction, elective Past Anesthesia History No Hx of Anesthesia Complications and No Family Hx of Anesthesia Complications History of PONV Yes Motion Sickness Screening History of Motion Sickness: Yes Social History Smoking Status: Never smoker Do You Dip or Chew Tobacco: No Hx Alcohol Use: No Hx Substance Use: No substance use type: does not use Exercise / Class Metabolic Activity II 4-5 Yardwork/Stairs/Walk up hill Physical Exam Vital Signs Last Vital Signs Temp 36.5 C 10/07/18 02:30 Pulse 96 H 10/07/18 03:12 Resp 20 10/07/18 03:00 BP 176/86 H 10/07/18 02:22 Pulse Ox 100 10/07/18 03:12 Constitutional + obese ENMT Mouth: no TMJ abnormality and no TMJ clicking Thyromental Distance: < 3.5 Finger Breadths Mallampati Class: II Neck neck extension not limited Respiratory Auscultation: lungs clear to auscultation bilaterally Cardiovascular Rate/Rhythm: regular rate and regular rhythm Psychiatric Orientation: alert and oriented x 3 Testing Laboratory Results 10/06/18 19:57 10/06/18 19:57 10/07/18 10/06/18 10/06/18 00:30 22:28 20:39 POC Glucose 71 68 L* 68 L*
[2018-10-07] MEDS: LACTATED RINGER'S 1,000 ML IV SCH ×3 (03:35→14:59)
[2018-10-07] MEDS ORDERED: NALBUPHINE HCL INJ 10 MG/ML AMP IV PRN ×2 (03:48→20:37)
[2018-10-07] MEDS ORDERED: ePHEDrine sulfate 50 MG/ML AMP IV PRN ×3 (03:48→20:37)
[2018-10-07] MEDS ORDERED: LACTATED RINGER'S 1,000 ML IV PRN (03:48)
[2018-10-07] MEDS ORDERED: DiphenhydrAMINE HCL 50 MG/ML VIAL IV PRN ×3 (03:48→20:37)
[2018-10-07] MEDS ORDERED: NALOXONE HCL 0.4 MG/1 ML VIAL/CARP IV PRN ×2 (03:48→20:37)
[2018-10-07] MEDS ORDERED: NALOXONE HCL 1 MG in SODIUM CHLORIDE 0.9% 1000ML 1,000 ML IV PRN ×2 (03:48→20:37)
[2018-10-07] MEDS: ONDANSETRON INJ 2 MG/ML 2 ML VIAL IV PRN ×2 (07:22→14:01)
--- NOTE | 2018-10-07 08:15 | Progress Note ---
Date of Service October 07, 2018 Subjective Called by RN for increasing pain. Patient states her epidural was working well until about an hour ago. She has pressed her PCEA button with minimal relief. On exam, she has adequate sensory level but only to about T10. Vitals are stable. Patient dosed by hand with 12cc of 0.125% bupivicane, increased epidural basal rate from 10cc/hr to 12cc/hr. Significant improvement in epidural sensory level and pain control. Vitals and FHT stable. Physical Exam Vital Signs (Past 24 Hours): Last Vital Signs Temp 36.7 C 10/07/18 07:25 Pulse 91 H 10/07/18 08:12 Resp 20 10/07/18 07:25 BP 141/69 H 10/07/18 08:07 Pulse Ox 99 10/07/18 08:12
[2018-10-07] MEDS: PROMETHAZINE HCL 12.5 MG in SODIUM CHLORIDE 0.9% 50 ML IV PRN ×2 (10:22→21:04)
--- NOTE | 2018-10-07 11:42 | Obstetrical Progress Note ---
Date of Service October 07, 2018 Subjective After repeat epidural, has now become more comfortable. She did briefly complain of pain between shoulder blades, this has resolved. BP has improved with better pain control. FHT Cat 1 [place] Q 2 Physical Exam Vital Signs (Past 24 Hours): Last Vital Signs Temp 36.6 C 10/07/18 11:19 Pulse 104 H 10/07/18 11:37 Resp 20 10/07/18 11:19 BP 153/72 H 10/07/18 11:29 Pulse Ox 100 10/07/18 11:37
[2018-10-07] MEDS ORDERED: ACETAMINOPHEN 500 MG TAB PO PRN (12:50)
[2018-10-07] MEDS: fentaNYL 2MCG/ML ROPIV 1.25MG/ML 100 ML BAG EPI PRN ×2 (13:17→16:37)
--- NOTE | 2018-10-07 15:36 | Obstetrical Progress Note ---
Date of Service October 07, 2018 Subjective Beginning to feel more pressure "in cervix." FHT Cat 1 [place] Q 2 7/100/+1, moulding. Will continue to labor and recheck. Physical Exam Vital Signs (Past 24 Hours): Last Vital Signs Temp 37.4 C 10/07/18 14:50 Pulse 131 H 10/07/18 15:32 Resp 22 10/07/18 15:15 BP 155/97 H 10/07/18 15:30 Pulse Ox 100 10/07/18 15:32
[2018-10-07] MEDS ORDERED: BUTORPHANOL TARTRATE 1 MG/ML VIAL IV STA (16:32)
[2018-10-07] MEDS ORDERED: BUTORPHANOL TARTRATE 1 MG/ML VIAL ONE (16:33)
--- NOTE | 2018-10-07 16:44 | Obstetrical Progress Note ---
Date of Service October 07, 2018 Subjective Patient very uncomfortable. Open-glottis response to contractions. FHT Cat 1. [place] Q 2-3 SVE 9/100/+1 to +2. Anterior cervical lip. Will give dose of 1mg stadol due to extreme discomfort. Physical Exam Vital Signs (Past 24 Hours): Last Vital Signs Temp 37.1 C 10/07/18 15:42 Pulse 151 H 10/07/18 16:37 Resp 22 10/07/18 15:15 BP 170/83 H 10/07/18 16:04 Pulse Ox 100 10/07/18 16:37
--- NOTE | 2018-10-07 18:13 | Obstetrical Progress Note ---
Date of Service October 07, 2018 Subjective Patient is extremely uncomfortable and is screaming with each contraction. She is emphatically requesting section right now. States "I cannot do this any more, you need to get the baby out now. I need a ." FHT Cat 1, [place] Q 2 SVE: 9/+1 RBA of reviewed, Patient agreeable. Informed consent obtained. Will proceed with for maternal request. Physical Exam Vital Signs (Past 24 Hours): Last Vital Signs Temp 37.4 C 10/07/18 16:55 Pulse 145 H 10/07/18 18:07 Resp 20 10/07/18 16:55 BP 153/74 H 10/07/18 18:05 Pulse Ox 96 10/07/18 18:07
[2018-10-07] MEDS ORDERED: CITRIC ACID/SODIUM CITRATE 15 ML UDC ONE (18:14)
[2018-10-07] MEDS ORDERED: CITRIC ACID/SODIUM CITRATE 15 ML UDC PO SCH (18:30)
[2018-10-07] MEDS ORDERED: CEFAZOLIN 3000MG 65 ML IV SCH (18:30)
[2018-10-07] MEDS ORDERED: MoRPHine SULFATE PF 1 MG/ML 10 ML AMP/VIAL ONE (19:22)
[2018-10-07] MEDS ORDERED: KETOROLAC 30 MG/ML VIAL ONE (19:42)
[2018-10-07] MEDS ORDERED: OXYTOCIN 10 UNITS/ML VIAL ONE (19:42)
[2018-10-07] MEDS ORDERED: LIDOCAINE/EPINEPHRINE 2% 1:200,000 20 ML SDV ONE (19:42)
[2018-10-07] MEDS ORDERED: SUCCINYLCHOLINE CHLORIDE 20 MG/ML 10 ML VIAL ONE (19:43)
[2018-10-07] MEDS ORDERED: METHYLERGONOVINE MALEATE 0.2 MG/ML AMP ONE (19:43)
[2018-10-07] MEDS ORDERED: LIDOCAINE HCL 2% MPF (LOCAL) 5 ML VIAL INFIL ONE (19:43)
[2018-10-07] MEDS ORDERED: PROPOFOL IV EMULSION 10 MG/ML 20 ML VIAL IV ONE (19:43)
[2018-10-07] MEDS ORDERED: HYDROCORTISONE ACETATE 25 MG SUPP PR PRN (19:54)
[2018-10-07] MEDS ORDERED: MAGNESIUM HYDROXIDE SUSP 30 ML UDC PO PRN (19:54)
[2018-10-07] MEDS ORDERED: DIPHTHERIA/TETANUS/PERTUSSIS 0.5 ML SYR/VIAL IM ONE (19:54)
[2018-10-07] MEDS ORDERED: SENNA 8.6 MG TAB PO PRN (19:54)
[2018-10-07] MEDS ORDERED: SUPERCREAM 0.870% 15 GM JAR EXT PRN (19:54)
[2018-10-07] MEDS ORDERED: BENZOCAINE 20% AER SPR 82.5 GM CAN EXT PRN (19:54)
[2018-10-07] MEDS ORDERED: ONDANSETRON INJ 2 MG/ML 2 ML VIAL ONE (20:01)
--- NOTE | 2018-10-07 20:13 | Post Operative Brief Note ---
Immediate Post Op Note v1 Date of Surgery October 07, 2018 Pre & Post Diagnosis Pre: 27yo @ 38 5/7, SROM, preeclampsia, GDMA2, maternal request for Post: same Procedure Primary Low Transverse Section Surgeon Cristina Magdaleno, DO Assistant Daily Burgess MD Estimated Blood Loss 800 Findings Consistent with Post-Op Diagnosis Viable male , APGARS 9/9, Weight 8#15. Small left paratubal cyst. Specimens Placenta, cord segment Left paratubal cyst Drains Nguyen Catheter Anesthesia Type General Complications none Disposition Disposition: L&D
[2018-10-07] MEDS ORDERED: ONDANSETRON INJ 2 MG/ML 2 ML VIAL IV PRN ×2 (20:20→20:37)
[2018-10-07] MEDS ORDERED: PROMETHAZINE HCL 6.25 MG in SODIUM CHLORIDE 0.9% 50 ML IV PRN ×2 (20:20→20:37)
[2018-10-07] MEDS ORDERED: ATROPINE SULFATE 0.1 MG/ML 10ML SYR IV PRN (20:20)
[2018-10-07] MEDS ORDERED: fentaNYL citrate 100 MCG/2 ML VIAL IV PRN (20:20)
--- NOTE | 2018-10-07 20:20 | Anesthesiology Progress Note ---
Date of Service October 07, 2018 Anesthesia Post Procedure Vital Signs Vital Signs: Temp Pulse Resp BP Pulse Ox 10/07/18 20:15 116 H 100 10/07/18 20:10 128 H 100 10/07/18 20:08 129 H 189/101 H 10/07/18 20:05 117 H 100 10/07/18 18:52 123 H 97 10/07/18 18:50 37.2 C 22 10/07/18 18:47 113 H 98 10/07/18 18:42 124 H 93 10/07/18 18:41 116 H 90 10/07/18 18:37 114 H 97 10/07/18 18:34 112 H 136/72 10/07/18 18:32 114 H 96 10/07/18 18:27 113 H 97 10/07/18 18:22 113 H 96 10/07/18 18:19 113 H 142/79 H 10/07/18 18:17 116 H 99 10/07/18 18:12 114 H 96 10/07/18 18:07 145 H 96 10/07/18 18:05 142 H 153/74 H 10/07/18 18:02 145 H 97 10/07/18 17:58 122 H 78 L 10/07/18 17:57 124 H 98 10/07/18 17:53 106 H 94 10/07/18 17:52 108 H 96 10/07/18 17:51 123 H 145/84 H 10/07/18 17:47 112 H 95 10/07/18 17:42 143 H 94 10/07/18 17:37 134 H 100 10/07/18 17:36 114 H 93 10/07/18 17:34 111 H 148/82 H 10/07/18 17:32 124 H 99 10/07/18 17:31 105 H 94 10/07/18 17:27 107 H 93 10/07/18 17:22 118 H 98 10/07/18 17:19 121 H 145/94 H 10/07/18 17:17 129 H 100 10/07/18 17:12 110 H 98 10/07/18 17:07 119 H 98 10/07/18 17:06 123 H 87 L 10/07/18 17:05 123 H 147/89 H 10/07/18 17:02 116 H 71 L 10/07/18 16:59 110 H 93 10/07/18 16:57 130 H 96 10/07/18 16:55 37.4 C 20 10/07/18 16:53 112 H 94 10/07/18 16:52 116 H 99 10/07/18 16:50 131 H 136/100 10/07/18 16:47 114 H 96 10/07/18 16:42 139 H 98 10/07/18 16:37 151 H 100 10/07/18 16:32 140 H 100 10/07/18 16:27 138 H 98 10/07/18 16:22 120 H 100 10/07/18 16:17 122 H 100 10/07/18 16:12 118 H 100 10/07/18 16:11 128 H 85 L 10/07/18 16:07 135 H 100 10/07/18 16:04 110 H 170/83 H 10/07/18 16:02 111 H 100 10/07/18 15:57 111 H 100 10/07/18 15:52 102 H 100 10/07/18 15:48 103 H 171/80 H 10/07/18 15:47 108 H 100 10/07/18 15:45 104 H 203/94 H 10/07/18 15:42 37.1 C 124 H 163/103 H 100 10/07/18 15:37 125 H 100 10/07/18 15:32 131 H 100 10/07/18 15:30 129 H 155/97 H 10/07/18 15:27 115 H 100 10/07/18 15:22 119 H 100 10/07/18 15:17 122 H 100 10/07/18 15:16 109 H 140/83 10/07/18 15:15 22 10/07/18 15:12 114 H 100 10/07/18 15:07 112 H 99 10/07/18 15:02 111 H 99 10/07/18 15:00 108 H 131/76 10/07/18 14:57 112 H 100 10/07/18 14:52 112 H 99 10/07/18 14:50 37.4 C 20 10/07/18 14:47 113 H 98 10/07/18 14:45 114 H 141/72 H 10/07/18 14:42 110 H 97 10/07/18 14:37 111 H 97 10/07/18 14:32 113 H 98 10/07/18 14:31 110 H 126/64 10/07/18 14:27 112 H 99 10/07/18 14:22 112 H 99 10/07/18 14:17 110 H 99 10/07/18 14:15 107 H 126/69 10/07/18 14:12 107 H 99 10/07/18 14:07 108 H 99 10/07/18 14:02 106 H 99 10/07/18 14:01 110 H 132/72 10/07/18 14:00 20 10/07/18 13:59 20 10/07/18 13:57 109 H 99 10/07/18 13:52 111 H 99 10/07/18 13:47 109 H 100 10/07/18 13:46 107 H 140/70 10/07/18 13:42 114 H 100 10/07/18 13:37 108 H 100 10/07/18 13:32 108 H 133/70 100 10/07/18 13:27 107 H 100 10/07/18 13:22 106 H 100 10/07/18 13:17 110 H 100 10/07/18 13:15 108 H 136/73 10/07/18 13:12 114 H 96 10/07/18 13:07 113 H 100 10/07/18 13:02 113 H 100 10/07/18 13:00 37.1 C 109 H 20 143/76 H 10/07/18 12:58 112 H 91 10/07/18 12:57 110 H 100 10/07/18 12:52 111 H 100 10/07/18 12:47 113 H 100 10/07/18 12:46 113 H 132/79 10/07/18 12:42 121 H 100 10/07/18 12:37 115 H 100 10/07/18 12:32 110 H 100 10/07/18 12:30 112 H 173/81 H 10/07/18 12:27 109 H 100 10/07/18 12:22 114 H 100 10/07/18 12:17 114 H 100 10/07/18 12:15 108 H 144/78 H 10/07/18 12:12 108 H 100 10/07/18 12:07 107 H 100 10/07/18 12:02 110 H 100 10/07/18 12:00 108 H 154/78 H 10/07/18 11:57 112 H 100 10/07/18 11:52 106 H 100 10/07/18 11:47 107 H 100 10/07/18 11:46 103 H 151/78 H 10/07/18 11:45 20 10/07/18 11:42 103 H 100 10/07/18 11:37 104 H 100 10/07/18 11:32 108 H 100 10/07/18 11:29 102 H 153/72 H 10/07/18 11:27 106 H 94 10/07/18 11:26 104 H 151/72 H 10/07/18 11:23 105 H 165/77 H 10/07/18 11:22 113 H 100 10/07/18 11:20 104 H 173/79 H 10/07/18 11:19 36.6 C 20 10/07/18 11:17 113 H 171/94 H 100 10/07/18 11:14 110 H 86 L 10/07/18 11:12 118 H 92 10/07/18 11:11 109 H 167/99 H 10/07/18 11:07 112 H 100 10/07/18 11:05 110 H 168/94 H 10/07/18 11:02 115 H 100 10/07/18 10:57 104 H 100 10/07/18 10:52 104 H 100 10/07/18 10:51 101 H 142/83 H 10/07/18 10:47 106 H 100 10/07/18 10:42 104 H 100 10/07/18 10:37 103 H 99 10/07/18 10:35 99 H 150/85 H 10/07/18 10:32 97 H 100 10/07/18 10:27 98 H 100 10/07/18 10:22 99 H 100 10/07/18 10:20 95 H 148/80 H 10/07/18 10:19 20 10/07/18 10:17 96 H 100 10/07/18 10:16 107 H 91 10/07/18 10:12 106 H 99 10/07/18 10:07 96 H 144/80 H 99 10/07/18 10:06 97 H 93 10/07/18 10:02 98 H 97 10/07/18 09:57 100 H 99 10/07/18 09:54 96 H 143/82 H 10/07/18 09:52 98 H 147/81 H 99 10/07/18 09:47 111 H 99 10/07/18 09:42 104 H 99 10/07/18 09:37 100 H 143/79 H 100 10/07/18 09:32 97 H 99 10/07/18 09:27 102 H 98 10/07/18 09:22 98 H 98 10/07/18 09:20 100 H 189/87 H 10/07/18 09:17 93 H 98 10/07/18 09:12 96 H 98 10/07/18 09:10 92 H 169/91 H 10/07/18 09:07 92 H 100 10/07/18 09:06 96 H 180/97 H 10/07/18 09:05 22 10/07/18 09:04 93 H 84 L 10/07/18 09:02 95 H 100 10/07/18 09:00 36.8 C 22 10/07/18 08:59 104 H 91 10/07/18 08:57 97 H 100 10/07/18 08:52 97 H 93 10/07/18 08:51 100 H 178/108 H 10/07/18 08:49 98 H 93 10/07/18 08:47 90 99 10/07/18 08:42 98 H 100 10/07/18 08:37 97 H 100 10/07/18 08:35 95 H 150/79 H 10/07/18 08:34 20 10/07/18 08:32 91 H 100 10/07/18 08:27 93 H 100 10/07/18 08:22 87 135/71 100 10/07/18 08:17 94 H 100 10/07/18 08:12 91 H 99 10/07/18 08:07 96 H 141/69 H 97 10/07/18 08:02 92 H 99 10/07/18 07:57 90 100 10/07/18 07:52 91 H 100 10/07/18 07:47 90 100 10/07/18 07:42 89 100 10/07/18 07:37 87 152/67 H 99 10/07/18 07:32 86 100 10/07/18 07:27 86 100 10/07/18 07:26 86 142/74 H 03/01/19 07:25 36.7 C 22 10/07/18 07:22 88 99 10/07/18 07:17 95 H 100 10/07/18 07:12 92 H 100 10/07/18 07:07 94 H 152/72 H 100 10/07/18 07:02 96 H 100 10/07/18 06:57 89 100 10/07/18 06:52 82 100 10/07/18 06:51 85 149/83 H 10/07/18 06:50 18 10/07/18 06:47 79 100 10/07/18 06:42 84 99 10/07/18 06:37 85 99 10/07/18 06:35 90 133/64 10/07/18 06:32 84 99 10/07/18 06:27 83 98 10/07/18 06:22 81 98 10/07/18 06:21 79 130/74 10/07/18 06:20 18 10/07/18 06:17 82 98 10/07/18 06:12 83 97 10/07/18 06:07 87 141/75 H 99 10/07/18 06:02 87 96 10/07/18 06:00 36.8 C 18 10/07/18 05:57 85 97 10/07/18 05:52 85 99 10/07/18 05:51 86 156/75 H 10/07/18 05:47 90 98 10/07/18 05:42 91 H 100 10/07/18 05:37 88 98 10/07/18 05:36 93 H 127/70 10/07/18 05:32 90 99 10/07/18 05:27 98 H 99 10/07/18 05:22 88 99 10/07/18 05:21 90 143/67 H 10/07/18 05:17 91 H 98 10/07/18 05:12 87 100 10/07/18 05:07 84 128/67 97 10/07/18 05:02 77 98 10/07/18 04:57 82 98 10/07/18 04:52 78 98 10/07/18 04:51 81 126/57 L 10/07/18 04:47 82 98 10/07/18 04:42 83 98 10/07/18 04:37 79 98 10/07/18 04:36 80 137/72 10/07/18 04:32 85 99 10/07/18 04:27 87 98 10/07/18 04:22 84 98 10/07/18 04:21 78 132/77 10/07/18 04:17 85 98 10/07/18 04:15 37.0 C 18 10/07/18 04:12 85 98 10/07/18 04:07 84 128/66 98 10/07/18 04:03 102 H 92 10/07/18 04:02 94 H 98 10/07/18 04:00 18 10/07/18 03:58 82 152/72 H 10/07/18 03:57 88 98 10/07/18 03:56 84 160/76 H 10/07/18 03:55 18 10/07/18 03:54 79 152/70 H 10/07/18 03:52 84 140/67 99 10/07/18 03:50 85 18 147/75 H 10/07/18 03:48 80 150/79 H 10/07/18 03:47 82 99 10/07/18 03:46 84 149/89 H 10/07/18 03:45 18 10/07/18 03:44 86 165/99 H 10/07/18 03:42 82 151/94 H 100 10/07/18 03:40 88 18 84 L 10/07/18 03:39 89 184/107 H 10/07/18 03:37 90 98 10/07/18 03:36 18 10/07/18 03:32 105 H 98 10/07/18 03:27 93 H 99 10/07/18 03:22 106 H 97 10/07/18 03:17 90 100 10/07/18 03:12 96 H 100 10/07/18 03:07 90 99 10/07/18 03:00 20 10/07/18 02:30 36.5 C 18 10/07/18 02:22 76 176/86 H 10/07/18 02:06 91 H 187/88 H 10/07/18 02:05 98 H 178/102 H 10/07/18 01:36 75 178/84 H 10/07/18 01:35 79 190/92 H 10/07/18 01:00 20 10/07/18 00:30 37.0 C 18 10/07/18 00:23 84 143/80 H 10/07/18 00:08 80 18 139/82 10/06/18 23:50 83 167/87 H 10/06/18 23:49 80 162/80 H 10/06/18 23:10 36.9 C 18 10/06/18 23:00 18 10/06/18 22:21 82 156/101 H 10/06/18 21:29 85 169/89 H 10/06/18 20:42 99 H 170/82 H Pain Intensity Bilateral Abdomen: Pain Intensity: 9 Notes Mental Status: alert / awake / arousable Patient Amnestic to Procedure: Yes Nausea / Vomiting: adequately controlled Pain: adequately controlled Airway Patency, RR, SpO2: stable & adequate BP & HR: stable & adequate Hydration State: stable & adequate Neuraxial Anesthesia: was administered and sensory block is resolving Anesthetic Complications: no major complications apparent Notes: Pain out of proportion to block prior to c section and patient stuck at 9cm. Given her very risistant pain control, a decision was made to proceed with general anesthesia. Her epidural was dosed with 2% lidocane and duramorph after induction as were the patient to stay awake through surgery and this did seem to provide adequate analgesia. She was comfortable on wakeup and the epidural catheter was removed with tip in tact.
[2018-10-07 20:34] LABS: Base Excess Cord Arterial Bld -4.1 mEq/L (-9-1.8); Base Excess Cord Venous Blood -5.3 mEq/L (-7.7-1.9); CO2 Cord Arterial Blood 46 mmHg (39.1-73.5); Cord Venous Blood HCO3 20 mmol/L (18.4-26.8); Cord Venous Blood PCO2 39 mmHg (30.4-57.2); Cord Venous Blood PO2 30 mmHg (14.1-43.3); Cord Venous Blood pH 7.33 (7.20-7.44); HCO3 Cord Arterial Blood 22 mmol/L (19.7-28.5); pH Cord Arterial Blood 7.31 (7.1-7.38)
[2018-10-07] MEDS ORDERED: MEPERIDINE HCL 25 MG/ML CARP IV PRN (20:37)
[2018-10-07] MEDS ORDERED: HYDROmorphone INJ 0.5 MG/0.5 ML SYR IV PRN (20:37)
[2018-10-07] MEDS ORDERED: MoRPHine SULFATE 4 MG/ML 1 ML CARP\\VIAL IV PRN (20:37)
[2018-10-07] MEDS ORDERED: LACTATED RINGER'S 500 ML IV PRN (20:37)
[2018-10-07] MEDS ORDERED: KETOROLAC 30 MG/ML VIAL IV PRN (20:37)
[2018-10-07] MEDS ORDERED: MoRPHine SULFATE PF 1 MG/ML 10 ML AMP/VIAL INT SPINAL ONE (20:37)
[2018-10-07] MEDS ORDERED: NALOXONE HCL 0.08 MG in SYRINGE 1.8 ML IV PRN (20:37)
[2018-10-07] MEDS ORDERED: NO NARCOTICS OR SEDATIVES SCH (20:45)
[2018-10-07] MEDS ORDERED: SODIUM CHLORIDE 0.9% 1000ML 1,000 ML IV SCH (20:45)
[2018-10-07] MEDS ORDERED: DC INTRASPINAL MORPHINE SCH (20:45)
[2018-10-07] MEDS: OXYTOCIN 20 UNITS in LACTATED RINGER'S 1,000 ML IV SCH (21:25)
--- NOTE | 2018-10-07 22:36 | Operative Report ---
Post Operative Report Pre & Post Diagnosis Pre: 27yo @ 38 5/7, SROM, preeclampsia, GDMA2, maternal request for Post: same Procedure Operation Date: 10/07/18 16:30 Actual Procedures p Section in LD. Low transverse uterine incision. Delivery of live male at 1919.(Bilateral) - Cristina Magdaleno DO Surgeon Cristina Magdaleno DO Hydrologic Modeler Daily Burgess MD Estimated Blood Loss 800 Findings Consistent with Post-Op Diagnosis Viable male , APGARS 9/9, Weight 8#15. Small left paratubal cyst. Specimens Placenta, cord blood, cord gases, left paratubal cyst Drains Nguyen catheter, concentrated urine Anesthesia Type General Complications none Disposition Accompanied Patient To Recovery: No Disposition: L&D Indications Patient is a 27-year-old at 38 weeks 5 days, who presented to labor and d elivery with spontaneous rupture of membranes and elevated blood pressures. also complicated by gestational proteinuria, hypothyroidism, GDM A2, morbid obesity. During her labor augmentation, she was found to have preeclampsia without severe features. She received an epidural that required re-dosing by anesthesia because she felt very little pain relief. During labor, patient was extremely uncomfortable with every contraction, crying out in pain during every contraction. She received Stadol in an attempt to ease her pain, this was minimally effective. When patient had progressed to 9 cm dilation, she felt the pain was intolerable and demanded a . I counseled her on risks, benefits, alternatives, and she made the decision to undergo primary section for maternal request. Informed consent was obtained. Description of Procedure The patient was taken to the operating room, where she is prepared and draped in the usual sterile fashion in the supine position with a leftward tilt. Timeout was confirmed. 3 g of Ancef was infused prior to incision. Due to patient's inability to receive effective pain control with her epidural x2, decision was made by patient and anesthesia to undergo general anesthesia. Patient was put under general, and upon receiving the go ahead from anesthesiologist that patient was unconscious, the section was immediately undertaken. A Pfannenstiel skin incision was made with a scalpel and carried through to the underlying layer of fascia. Fascia was nicked at midline, and this incision was bluntly extended bilaterally. The superior aspect of the fascial incision was grasped with Isabela clamps x2, elevated off the underlying rectus abdominis muscles, and dissected. In a similar fashion, the inferior aspect of the incision was dissected. The peritoneum was entered bluntly digitally at midline, this incision was extended bluntly. A large amount of peritoneal fluid was noted, likely due to her long labor process. A bladder flap was created using Metzenbaum scissors. The uterus was entered using a new scalpel in a low transverse fashion. This incision was extended bilaterally bluntly. The infant's head was delivered from a cephalic presentation, no nuchal cord was noted, the shoulders and the body were delivered. A spontaneous cry was heard. The cord was doubly clamped and cut. The baby was handed off to the waiting marine operations coordinator. A cord segment was retained for cord gases. Cord blood was obtained. Placenta was delivered spontaneously intact with three-vessel cord. The uterus was swept of all clots and debris. The uterus was exteriorized, and the hysterotomy incision was reapproximated using 0 Vicryl in a running locked stitch. A second layer of the same suture was used to imbricate the incision. The uterus at this time was very atonic, presumably from both the patient's long labor as well as her general anesthesia. 1 dose of Methergine was given by anesthesia, and 10 units of Pitocin was injected into the uterine muscle. The uterus became more firm. The posterior uterus was evaluated and found to be normal. A small left paraovarian/paratubal cyst on a long stalk was noted, due to risk of this dangling cyst causing pain or torsion in the future, this was removed with Bovie cautery. This was sent to pathology labeled left paratubal cyst. The hysterotomy incision was noted to be hemostatic. The uterus was returned to the abdomen. Gutters were cleared of all clots and debris. The incision was evaluated again, and noted to be hemostatic. The fascial layer was reapproximated using 0 Vicryl in a running stitch. The subcutaneous tissue was irrigated, and a single layer of 2-0 plain gut suture was used to reapproximate this tissue. The skin was reapproximated with leyal, due to large amount of edema in the tissues. A nancy wound VAC was applied. Mother and baby tolerated the delivery well, and were taken to her labor room to recovery in stable and good condition. At the conclusion of the delivery, sponge, instrument, needle counts were correct x2. I attest to the content of the Intraoperative Record and any orders documented therein. Any exceptions are noted below.
[2018-10-08] MEDS: OXYTOCIN 20 UNITS in LACTATED RINGER'S 1,000 ML IV SCH (04:33)
[2018-10-08 06:46] LABS: Hematocrit (blood only) 27.5 % (37-47); Hemoglobin 9.2 g/dL (12.0-16.0); Mean Corpuscular Hgb Conc 33.5 g/dL (32-36); Mean Corpuscular Volume 83.8 fL (80-100); Platelet Count 153 K/uL (130-400); RDW Coefficient of Variation 15.7 % (11.5-14.5); RDW Standard Deviation 48.3 fL (36.4-46.3); Red Blood Count 3.28 M/uL (4.2-5.4); White Blood Count 14.18 K/uL (4.8-10.8)
[2018-10-08 07:13] LABS: Basophils # (auto) 0.01 K/uL (0-0.2); Basophils % (auto) 0.1 %; Eosinophils # (auto) 0.04 K/uL (0-0.5); Eosinophils % (auto) 0.3 %; Immature Granulocytes # (auto) 0.03 K/uL (0.00-0.02); Immature Granulocytes % (auto) 0.2 %; Lymphocytes # (auto) 1.29 K/uL (1.2-3.4); Lymphocytes % (auto) 9.1 %; Microcytosis Present; Monocytes # (auto) 1.02 K/uL (0.11-0.59); Monocytes % (auto) 7.2 %; Neutrophils # (auto) 11.79 K/uL (1.4-6.5); Neutrophils % (auto) 83.1 %
[2018-10-08] MEDS ORDERED: CALCIUM CARBONATE 500 MG CHEWABLE TAB PO PRN (07:20)
--- NOTE | 2018-10-08 07:24 | Obstetrical Progress Note ---
Date of Service October 08, 2018 Assessment & Plan (1) S/P : 27yo with pod1 s/p 2/2 to maternal pain complicated by pre eclampsia -Vital signs WNL bp 109/69 T37.3 -Hemoglobin is 9.2 down from 11.4 on admission. no si/sx of anemia. -Pt is doing clinically well -Continue to encourage ambulation as tolerated, Monitor and control pain with Motrin, toradol, oxycodone q4h prn. -Advanced diet to reg ob continue as tolerated -plan is to bottle feed -For TOV today -Tums for heartburn -routine post op care Supervising Physician Co-Signing Physician Notes I have seen/examined patient. I have read above note performed by resident and I agree with above. Any changes/additions are as follows: POD#1 doing well. ARIADNA wound dressing in place. I discussed the events of with patient, answered questions. Goals for today: ambulate, drink plenty of fluids. During rounds, she did not have EPC cuffs on - discussed importance of use to decrease blood clot risk. She states understanding. Cristina Magdaleno DO [facility] Subjective Pt sleeping in bed this morning, reports she is happy to no longer be in labor. No acute events overnight, de león is in place with dark urine. Pt reports acid reflux provided tums. No ambulation yet. Physical Exam Vital Signs (Past 24 Hours): Last Vital Signs Temp 37.3 C 10/08/18 07:20 Pulse 114 H 10/08/18 07:20 Resp 16 10/08/18 07:20 BP 109/69 10/08/18 07:20 Pulse Ox 96 10/08/18 06:30 Constitutional: WD/WN, vitals as above + obese Eyes: normal visual meonn by confrontation Respiratory: normal respiratory effort, lungs clear to auscultation Cardiovascular: RRR, no murmur, no edema Extremities: no calf tenderness Gastrointestinal (Abdomen): normal bowel sounds, soft, nontender, no hepatosplenomegaly (uterus firm andbelow the umbilicus, surgical site clean dry and intact) Skin: no rashes, warm and dry Results & Data Laboratory Results 10/08/18 10/07/18 10/07/18 Range/Units 06:15 19:19 19:19 WBC 14.18 H (4.8-10.8) K/uL RBC 3.28 L (4.2-5.4) M/uL Hgb 9.2 L (12.0-16.0) g/dL Hct 27.5 L (37-47) % MCV 83.8 (80-100) fL MCH 28.0 (25-34) pg MCHC 33.5 (32-36) g/dL RDW Std Deviation 48.3 H (36.4-46.3) fL RDW Coeff of [place] 15.7 H (11.5-14.5) % Plt Count 153 (130-400) K/uL MPV 11.0 H (7.4-10.4) fL Immature Gran % (Auto) 0.2 % Neut % (Auto) 83.1 % Lymph % (Auto) 9.1 % [place] % (Auto) 7.2 % Eos % (Auto) 0.3 % Baso % (Auto) 0.1 % Immature Gran # (Auto) 0.03 H (0.00-0.02) K/uL Neut # (Auto) 11.79 H (1.4-6.5) K/uL Lymph # (Auto) 1.29 (1.2-3.4) K/uL [place] # (Auto) 1.02 H (0.11-0.59) K/uL Eos # (Auto) 0.04 (0-0.5) K/uL Baso # (Auto) 0.01 (0-0.2) K/uL Microcytosis Present Cord ABG pH 7.31 (7.1-7.38) Cord ABG pCO2 46 (39.1-73.5) mmHg Cord ABG pO2 18.0 (4.1-31.7) % Cord ABG HCO3 22 (19.7-28.5) mmol/L Cord ABG Base Excess -4.1 (-9-1.8) mEq/L Cord ABG O2 Sat < 60.0 (<60) % Cord VBG pH 7.33 (7.20-7.44) Cord VBG pCO2 39 (30.4-57.2) mmHg Cord VBG pO2 30 (14.1-43.3) mmHg Cord VBG HCO3 20 (18.4-26.8) mmol/L Cord VBG Base Excess -5.3 (-7.7-1.9) mEq/L Cord VBG O2 Sat 66.0 (<68) % Barometric Pressure 735.5 735.4 mm/Hg Blood Gas Comments FOX FOX POC Glucose (70-99) 10/07/18 10/07/18 10/07/18 Range/Units 16:54 14:52 12:46 WBC (4.8-10.8) K/uL RBC (4.2-5.4) M/uL Hgb (12.0-16.0) g/dL Hct (37-47) % MCV (80-100) fL MCH (25-34) pg MCHC (32-36) g/dL RDW Std Deviation (36.4-46.3) fL RDW Coeff of [place] (11.5-14.5) % Plt Count (130-400) K/uL MPV (7.4-10.4) fL Immature Gran % (Auto) % Neut % (Auto) % Lymph % (Auto) % [place] % (Auto) % Eos % (Auto) % Baso % (Auto) % Immature Gran # (Auto) (0.00-0.02) K/uL Neut # (Auto) (1.4-6.5) K/uL Lymph # (Auto) (1.2-3.4) K/uL [place] # (Auto) (0.11-0.59) K/uL Eos # (Auto) (0-0.5) K/uL Baso # (Auto) (0-0.2) K/uL Microcytosis Cord ABG pH (7.1-7.38) Cord ABG pCO2 (39.1-73.5) mmHg Cord ABG pO2 (4.1-31.7) % Cord ABG HCO3 (19.7-28.5) mmol/L Cord ABG Base Excess (-9-1.8) mEq/L Cord ABG O2 Sat (<60) % Cord VBG pH (7.20-7.44) Cord VBG pCO2 (30.4-57.2) mmHg Cord VBG pO2 (14.1-43.3) mmHg Cord VBG HCO3 (18.4-26.8) mmol/L Cord VBG Base Excess (-7.7-1.9) mEq/L Cord VBG O2 Sat (<68) % Barometric Pressure mm/Hg Blood Gas Comments POC Glucose 92 77 74 (70-99) 10/07/18 10/07/18 Range/Units 10:28 08:18 WBC (4.8-10.8) K/uL RBC (4.2-5.4) M/uL Hgb (12.0-16.0) g/dL Hct (37-47) % MCV (80-100) fL MCH (25-34) pg MCHC (32-36) g/dL RDW Std Deviation (36.4-46.3) fL RDW Coeff of [place] (11.5-14.5) % Plt Count (130-400) K/uL MPV (7.4-10.4) fL Immature Gran % (Auto) % Neut % (Auto) % Lymph % (Auto) % [place] % (Auto) % Eos % (Auto) % Baso % (Auto) % Immature Gran # (Auto) (0.00-0.02) K/uL Neut # (Auto) (1.4-6.5) K/uL Lymph # (Auto) (1.2-3.4) K/uL [place] # (Auto) (0.11-0.59) K/uL Eos # (Auto) (0-0.5) K/uL Baso # (Auto) (0-0.2) K/uL Microcytosis Cord ABG pH (7.1-7.38) Cord ABG pCO2 (39.1-73.5) mmHg Cord ABG pO2 (4.1-31.7) % Cord ABG HCO3 (19.7-28.5) mmol/L Cord ABG Base Excess (-9-1.8) mEq/L Cord ABG O2 Sat (<60) % Cord VBG pH (7.20-7.44) Cord VBG pCO2 (30.4-57.2) mmHg Cord VBG pO2 (14.1-43.3) mmHg Cord VBG HCO3 (18.4-26.8) mmol/L Cord VBG Base Excess (-7.7-1.9) mEq/L Cord VBG O2 Sat (<68) % Barometric Pressure mm/Hg Blood Gas Comments POC Glucose 77 72 (70-99) Medications Administered Current Inpatient Medications Acetaminophen (Tylenol) 1,000 mg PO Q6H PRN PRN Reason: Headache Stop: 11/06/18 12:49 Last Admin: 10/07/18 13:02 Dose: 1,000 mg Documented by: Benzocaine (Dermoplast Pain Relieving [place]) 1 appln EXT UD PRN PRN Reason: use on skin as needed Stop: 11/06/18 19:53 Bisacodyl (Dulcolax) 5 mg PO 2000 AMARIS Stop: 10/08/18 20:01 Bisacodyl (Dulcolax) 10 mg ND PRN PRN PRN Reason: Constipation Stop: 11/08/18 19:53 Calcium Carbonate (Tums) 500 mg PO QID PRN PRN Reason: Indigestion Stop: 11/07/18 07:19 Cocaine HCl (Supercream 0.870%) 1 gm EXT UD PRN PRN Reason: hemmorrhoidal inflammation Stop: 10/21/18 19:53 Diphenhydramine HCl (Benadryl) 25 mg IV QID PRN PRN Reason: Itching Stop: 11/07/18 14:37 Diphenhydramine HCl (Benadryl Capsule) 25 mg PO QID PRN PRN Reason: Itching Stop: 11/07/18 14:37 Diphenhydramine HCl (Benadryl) 25 mg IV Q6H PRN PRN Reason: pruritis Stop: 10/08/18 14:37 Diphenhydramine HCl (Benadryl) 25 mg IV HS PRN PRN Reason: Insomnia Stop: 10/08/18 14:38 Diphenhydramine HCl (Benadryl Capsule) 50 mg PO HS PRN PRN Reason: Insomnia Stop: 10/08/18 14:38 Docusate Sodium (Colace) 100 mg PO BID [facility] Stop: 11/06/18 20:59 Last Admin: 10/08/18 07:31 Dose: Not Given Documented by: Ephedrine Sulfate (Ephedrine Sulfate) 10 mg IV Q5M PRN PRN Reason: Hypotension Stop: 10/08/18 14:37 Ferrous Sulfate (Feosol) 325 mg PO QAM AMARIS Stop: 11/07/18 08:59 Hydrocortisone (Anusol Hc) 25 mg ND BID PRN PRN Reason: Hemorrhoids Stop: 11/06/18 19:53 Hydromorphone HCl (Dilaudid) 0.5 mg IV Q2H PRN PRN Reason: Breakthrough Surgical Pain Stop: 10/08/18 14:38 Lactated Ringer's (Lr) 1,000 mls @ 999 mls/hr IV .Q1H1M PRN PRN Reason: Tachysystole Stop: 10/08/18 20:29 Oxytocin (Pitocin) 30 units in 500 mls @ 9 mls/hr IV .Q24H PRN; Protocol PRN Reason: Labor Induction/Augmentation Stop: 10/08/18 20:29 Last Titration: 10/07/18 18:06 Dose: Infused Documented by: Lactated Ringer's (Lr) 1,000 mls @ 125 mls/hr IV .Q8H AMARIS Stop: 11/06/18 19:59 Last Admin: 10/08/18 07:30 Dose: Not Given Documented by: Oxytocin 20 units/ Lactated (Ringer's) 1,002 mls @ 125 mls/hr IV .Q8H1M AMARIS Stop: 11/06/18 19:59 Last Admin: 10/08/18 04:33 Dose: 125 mls/hr Documented by: Promethazine HCl 25 mg/ Sodium (Chloride) 51 mls @ 204 mls/hr IV Q4H PRN PRN Reason: Nausea And Vomiting Stop: 11/07/18 14:37 Lactated Ringer's (Lr) 500 mls @ 999 mls/hr IV .Q31M PRN PRN Reason: Hypotension Stop: 10/08/18 14:37 Naloxone HCl 1 mg/ Sodium (Chloride) 1,002.5 mls @ 50 mls/hr IV .Q20H3M PRN PRN Reason: itching or nausea Stop: 10/08/18 14:37 Naloxone HCl 0.08 mg/ Syringe 2 mls @ 1 mls/min IV Q30M PRN; Protocol PRN Reason: Urinary Retention Stop: 10/08/18 14:37 Promethazine HCl 6.25 mg/ (Sodium Chloride) 50.25 mls @ 204 mls/hr IV Q6H PRN PRN Reason: Nausea And Vomiting Stop: 10/08/18 14:38 Last Admin: 10/08/18 04:14 Dose: 204 mls/hr Documented by: Sodium Chloride (Nss 1000ml) 1,000 mls @ 15 mls/hr IV .Q24H AMARIS Stop: 10/08/18 14:37 Last Admin: 10/08/18 07:30 Dose: Not Given Documented by: Ibuprofen (Motrin) 600 mg PO Q4H PRN PRN Reason: Pain Stop: 11/06/18 19:53 Ketorolac Tromethamine (Toradol) 30 mg IV Q6H PRN PRN Reason: Pain Stop: 10/13/18 14:37 Ketorolac Tromethamine (Toradol) 30 mg IV Q6H PRN PRN Reason: Breakthrough Surgical Pain Stop: 10/08/18 14:37 Magnesium Hydroxide (Milk Of Magnesia) 30 ml PO HS PRN PRN Reason: Constipation Stop: 11/06/18 19:53 Meperidine HCl (Demerol) 25 mg IV Q15M PRN PRN Reason: Breakthrough Surgical Pain Stop: 10/08/18 14:37 Miscellaneous (No Narcotics Or Sedatives) 1 ea N/A UD AMARIS Stop: 10/08/18 14:37 Miscellaneous Information (Dc Intraspinal Morphine) 1 ea N/A UD AMARIS Stop: 10/08/18 14:37 Morphine Sulfate (Morphine Sulfate) 4 mg IV Q2H PRN PRN Reason: Breakthrough Surgical Pain Stop: 10/08/18 14:37 Nalbuphine HCl (Nubain) 5 mg IV Q10M PRN PRN Reason: itching or nausea Stop: 10/08/18 14:37 Naloxone HCl (Narcan) 0.1 mg IV UD PRN PRN Reason: Respiratory Depression Stop: 10/08/18 14:37 Ondansetron HCl (Zofran) 4 mg IV Q4H PRN PRN Reason: Nausea And Vomiting Stop: 11/07/18 14:37 Ondansetron HCl (Zofran) 4 mg IV Q6H PRN PRN Reason: Nausea And Vomiting Stop: 10/08/18 14:38 Oxycodone/Acetaminophen (Percocet 5mg/325mg) 1 - 2 tab PO Q4H PRN PRN Reason: Pain Stop: 10/22/18 14:37 Prenat Multivit/[place]/Iron/Folic Ac ( Vitamin) 1 tab PO QAM [facility] Stop: 11/07/18 08:59 Sennosides (Senokot) 17.2 mg PO HS PRN PRN Reason: Constipation Stop: 11/06/18 19:53 Simethicone (Mylicon) 80 mg PO QID AMARIS Stop: 11/06/18 20:59 Last Admin: 10/08/18 07:31 Dose: Not Given Documented by: Resident Activity Tracking Resident Involvement: Resident Care Provided Care Provided: Adult Hospital Medicine
[2018-10-08] MEDS: LACTATED RINGER'S 1,000 ML IV SCH ×2 (07:30→13:26)
[2018-10-08] MEDS: SIMETHICONE 80 MG CHEW PO SCH ×5 (07:31→21:16)
[2018-10-08] MEDS: DOCUSATE SODIUM 100 MG CAP PO SCH ×3 (07:31→21:15)
[2018-10-08] MEDS: FERROUS SULFATE 325 MG TAB PO SCH (08:24)
[2018-10-08] MEDS: PRENATAL VITAMIN 1 TAB PO SCH (08:24)
[2018-10-08] MEDS ORDERED: FAMOTIDINE 20 MG TAB PO PRN (08:29)
[2018-10-08] MEDS: LEVOTHYROXINE SODIUM 125 MCG TABLET PO SCH (11:22)
[2018-10-08] MEDS ORDERED: KETOROLAC 30 MG/ML VIAL IV PRN (14:38)
[2018-10-08] MEDS ORDERED: DiphenhydrAMINE HCL 50 MG/ML VIAL IV PRN (14:38)
[2018-10-08] MEDS ORDERED: PROMETHAZINE HCL 25 MG in SODIUM CHLORIDE 0.9% 50 ML IV PRN (14:38)
[2018-10-08] MEDS ORDERED: ONDANSETRON INJ 2 MG/ML 2 ML VIAL IV PRN (14:38)
[2018-10-08] MEDS: OXYCODONE/ACETAMINOPHEN 5mg/325mg TAB PO PRN ×4 (15:39→23:59)
[2018-10-08] MEDS: IBUPROFEN 600 MG TAB PO PRN ×2 (16:59→23:56)
[2018-10-08] MEDS ORDERED: BISACODYL 5 MG TABEC PO SCH (20:00)
--- NOTE | 2018-10-08 20:13 | Anesthesiology Progress Note ---
Date of Service October 08, 2018 Anesthesia Post Procedure Vital Signs Vital Signs: Temp Pulse Pulse Resp BP BP Pulse Ox 10/08/18 19:55 37 C 116 H 18 116/75 95 10/08/18 15:15 37.0 C 103 H 18 107/71 96 10/08/18 14:00 20 96 10/08/18 13:00 20 95 10/08/18 12:20 37.9 C H 104 H 20 111/79 97 10/08/18 12:00 20 96 10/08/18 11:00 20 97 10/08/18 10:00 20 95 10/08/18 09:00 20 96 10/08/18 08:00 20 95 10/08/18 07:20 37.3 C 114 H 16 109/69 10/08/18 07:00 20 97 10/08/18 06:30 18 96 10/08/18 05:30 18 96 10/08/18 04:30 37.3 C 113 H 18 106/70 98 10/08/18 03:30 18 96 10/08/18 02:30 18 96 10/08/18 01:30 16 96 10/07/18 23:15 37.9 C H 111 H 18 117/76 96 10/07/18 22:50 104 H 96 10/07/18 22:45 104 H 95 10/07/18 22:44 107 H 94 10/07/18 22:40 109 H 127/56 L 98 10/07/18 22:38 18 10/07/18 22:35 110 H 99 10/07/18 22:30 108 H 97 10/07/18 22:25 110 H 98 10/07/18 22:20 108 H 124/58 L 99 10/07/18 22:15 111 H 99 10/07/18 22:10 111 H 99 10/07/18 22:08 18 10/07/18 22:05 111 H 99 10/07/18 22:00 104 H 132/60 98 10/07/18 21:55 107 H 98 10/07/18 21:50 101 H 99 10/07/18 21:45 106 H 99 10/07/18 21:40 102 H 142/64 H 99 10/07/18 21:38 18 10/07/18 21:35 106 H 99 10/07/18 21:30 106 H 99 10/07/18 21:28 109 H 93 10/07/18 21:25 107 H 97 10/07/18 21:20 102 H 97 10/07/18 21:19 107 H 131/74 10/07/18 21:15 105 H 97 10/07/18 21:10 106 H 127/72 98 10/07/18 21:08 18 10/07/18 21:05 103 H 99 10/07/18 21:00 98 H 132/62 99 10/07/18 20:58 18 10/07/18 20:55 100 H 97 10/07/18 20:50 88 129/80 99 10/07/18 20:48 18 10/07/18 20:45 97 H 99 10/07/18 20:40 97 H 135/78 100 10/07/18 20:38 18 10/07/18 20:35 107 H 99 10/07/18 20:30 92 H 144/68 H 100 10/07/18 20:28 20 10/07/18 20:25 105 H 99 10/07/18 20:20 101 H 142/65 H 100 10/07/18 20:18 20 10/07/18 20:15 116 H 100 Pain Intensity Bilateral Abdomen: Pain Intensity: 6 Notes Mental Status: alert / awake / arousable and participated in evaluation Patient Amnestic to Procedure: Yes Nausea / Vomiting: adequately controlled Pain: adequately controlled Airway Patency, RR, SpO2: stable & adequate BP & HR: stable & adequate Hydration State: stable & adequate Anesthetic Complications: no major complications apparent
[2018-10-08] MEDS: PARoxetine HCl 10 MG TAB PO SCH (21:16)
[2018-10-09] MEDS: OXYCODONE/ACETAMINOPHEN 5mg/325mg TAB PO PRN ×5 (04:34→21:58)
[2018-10-09] MEDS: IBUPROFEN 600 MG TAB PO PRN ×5 (04:34→21:59)
--- NOTE | 2018-10-09 06:00 | Obstetrical Progress Note ---
Date of Service October 09, 2018 Assessment & Plan (1) S/P : Routine care Subjective Ambulation: ambulating normally Voiding: no voiding problems Passing Gas:: Yes Diet Tolerance:: regular diet Lochia:: Moderate Physical Exam Vital Signs (Past 24 Hours) Last Vital Signs Temp 35.7 C L 10/09/18 00:50 Pulse 103 H 10/09/18 00:50 Resp 20 10/09/18 00:50 BP 122/78 10/09/18 00:50 Pulse Ox 98 10/09/18 00:50 Gastrointestinal (Abdomen) Incision with dressing in place. C/D/I Genitourinary OB Exam Abdomen: + fundal height Fundus: + firm and + relation to umbilicus (below); not tender and not boggy
[2018-10-09] MEDS: LEVOTHYROXINE SODIUM 125 MCG TABLET PO SCH (06:43)
[2018-10-09 07:03] LABS: Hematocrit (blood only) 22.5 % (37-47); Hemoglobin 7.3 g/dL (12.0-16.0)
[2018-10-09] MEDS: OXYTOCIN 20 UNITS in LACTATED RINGER'S 1,000 ML IV SCH (07:36)
[2018-10-09] MEDS: LACTATED RINGER'S 1,000 ML IV SCH (07:37)
[2018-10-09] MEDS: SIMETHICONE 80 MG CHEW PO SCH ×4 (09:11→20:07)
[2018-10-09] MEDS: PRENATAL VITAMIN 1 TAB PO SCH (09:12)
[2018-10-09] MEDS: DOCUSATE SODIUM 100 MG CAP PO SCH ×2 (09:12→20:08)
[2018-10-09] MEDS: FERROUS SULFATE 325 MG TAB PO SCH (09:12)
[2018-10-09] MEDS: BISACODYL 10 MG SUPP PR SCH (09:14)
[2018-10-09] MEDS: MAGNESIUM HYDROXIDE SUSP 30 ML UDC PO SCH ×2 (09:17→20:07)
[2018-10-09] MEDS ORDERED: BISACODYL 10 MG SUPP PR PRN (19:54)
[2018-10-09] MEDS: PARoxetine HCl 10 MG TAB PO SCH (20:07)
[2018-10-10] MEDS: IBUPROFEN 600 MG TAB PO PRN ×3 (02:50→13:04)
[2018-10-10] MEDS: OXYCODONE/ACETAMINOPHEN 5mg/325mg TAB PO PRN ×3 (02:51→13:03)
[2018-10-10] MEDS: LEVOTHYROXINE SODIUM 125 MCG TABLET PO SCH (06:07)
--- NOTE | 2018-10-10 07:30 | Obstetrical Progress Note ---
Date of Service October 10, 2018 Assessment & Plan (1) S/P : 27yo with pod3 s/p 2/2 to maternal pain complicated by pre eclampsia -Vital signs WNL bp 109/69 T37.3 -Hemoglobin is 9.2 down from 11.4 on admission. no si/sx of anemia. -Pt is doing clinically well -Continue to encourage ambulation as tolerated, Monitor and control pain with Motrin prn, --Continue diet as tolerated. -incision Clean Dry and intact -Continue to support and encourage breast feeding -no more n/v tolerating diet -Counseled patient on discharge instructions including Vaginal bleeding, fevers, followup, lifting restrictions, breast feeding, vitamins, and nothing in the vagina for 6 weeks. Pt was agreeable -Plan for d/c today Supervising Physician Co-Signing Physician Notes Patient seen and evaluated and agree with the above assessment and plan Subjective pt resting in bed with dad and baby at the bed side. Patient is tolerating her diet, ambulating, passing gas and voiding, still no bm. Reports moderate lochia. Denies H/A, chest pain, palpitations and uti syx. No concerns at this time pain is well controlled Physical Exam Vital Signs (Past 24 Hours): Last Vital Signs Temp 36.9 C 10/09/18 23:00 Pulse 104 H 10/09/18 23:00 Resp 20 10/09/18 23:00 BP 129/82 10/09/18 23:00 Pulse Ox 96 10/09/18 23:00 Constitutional: WD/WN, vitals as above + obese Eyes: normal visual menon by confrontation Cardiovascular: Extremities: no calf tenderness Gastrointestinal (Abdomen): normal bowel sounds, soft, nontender, no hepatosplenomegaly (uterus firm andbelow the umbilicus, surgical site clean dry and intact) Skin: no rashes, warm and dry (surgical site clean dry and intact ) Results & Data Medications Administered Current Inpatient Medications Acetaminophen (Tylenol) 1,000 mg PO Q6H PRN PRN Reason: Headache Stop: 11/06/18 12:49 Last Admin: 10/07/18 13:02 Dose: 1,000 mg Documented by: Benzocaine (Dermoplast Pain Relieving [place]) 1 appln EXT UD PRN PRN Reason: use on skin as needed Stop: 11/06/18 19:53 Bisacodyl (Dulcolax) 10 mg NE QAM [facility] Stop: 11/08/18 08:59 Last Admin: 10/09/18 09:14 Dose: 10 mg Documented by: Calcium Carbonate (Tums) 500 mg PO QID PRN PRN Reason: Indigestion Stop: 11/07/18 07:19 Last Admin: 10/08/18 08:23 Dose: 500 mg Documented by: Cocaine HCl (Supercream 0.870%) 1 gm EXT UD PRN PRN Reason: hemmorrhoidal inflammation Stop: 10/21/18 19:53 Diphenhydramine HCl (Benadryl) 25 mg IV QID PRN PRN Reason: Itching Stop: 11/07/18 14:37 Diphenhydramine HCl (Benadryl Capsule) 25 mg PO QID PRN PRN Reason: Itching Stop: 11/07/18 14:37 Docusate Sodium (Colace) 100 mg PO BID [facility] Stop: 11/06/18 20:59 Last Admin: 10/09/18 20:08 Dose: 100 mg Documented by: Famotidine (Pepcid) 20 mg PO HS PRN PRN Reason: Indigestion Stop: 11/07/18 08:28 Last Admin: 10/08/18 21:33 Dose: 20 mg Documented by: Ferrous Sulfate (Feosol) 325 mg PO QAM [facility] Stop: 11/07/18 08:59 Last Admin: 10/09/18 09:12 Dose: 325 mg Documented by: Hydrocortisone (Anusol Hc) 25 mg NE BID PRN PRN Reason: Hemorrhoids Stop: 11/06/18 19:53 Lactated Ringer's (Lr) 1,000 mls @ 125 mls/hr IV .Q8H [facility] Stop: 11/06/18 19:59 Last Admin: 10/09/18 07:37 Dose: Not Given Documented by: Oxytocin 20 units/ Lactated (Ringer's) 1,002 mls @ 125 mls/hr IV .Q8H1M [facility] Stop: 11/06/18 19:59 Last Admin: 10/09/18 07:36 Dose: Not Given Documented by: Promethazine HCl 25 mg/ Sodium (Chloride) 51 mls @ 204 mls/hr IV Q4H PRN PRN Reason: Nausea And Vomiting Stop: 11/07/18 14:37 Ibuprofen (Motrin) 600 mg PO Q4H PRN PRN Reason: Pain Stop: 11/06/18 19:53 Last Admin: 10/10/18 02:50 Dose: 600 mg Documented by: Ketorolac Tromethamine (Toradol) 30 mg IV Q6H PRN PRN Reason: Pain Stop: 10/13/18 14:37 Levothyroxine Sodium (Synthroid) 125 mcg PO DAILYBB [facility] Stop: 11/07/18 08:59 Last Admin: 10/10/18 06:07 Dose: 125 mcg Documented by: Magnesium Hydroxide (Milk Of Magnesia) 30 ml PO BID [facility] Stop: 11/08/18 08:59 Last Admin: 10/09/18 20:07 Dose: 30 ml Documented by: Ondansetron HCl (Zofran) 4 mg IV Q4H PRN PRN Reason: Nausea And Vomiting Stop: 11/07/18 14:37 Oxycodone/Acetaminophen (Percocet 5mg/325mg) 1 - 2 tab PO Q4H PRN PRN Reason: Pain Stop: 10/22/18 14:37 Last Admin: 10/10/18 02:51 Dose: 1 tab Documented by: Paroxetine HCl (Paroxetine Hcl) 10 mg PO HS [facility] Stop: 11/07/18 20:59 Last Admin: 10/09/18 20:07 Dose: 10 mg Documented by: Prenat Multivit/[place]/Iron/Folic Ac ( Vitamin) 1 tab PO QAM [facility] Stop: 11/07/18 08:59 Last Admin: 10/09/18 09:12 Dose: 1 tab Documented by: Sennosides (Senokot) 17.2 mg PO HS PRN PRN Reason: Constipation Stop: 11/06/18 19:53 Simethicone (Mylicon) 80 mg PO QID [facility] Stop: 11/06/18 20:59 Last Admin: 10/09/18 20:07 Dose: 80 mg Documented by: Resident Activity Tracking Resident Involvement: Resident Care Provided Care Provided: Adult Hospital Medicine
[2018-10-10] MEDS: FERROUS SULFATE 325 MG TAB PO SCH (08:13)
[2018-10-10] MEDS: DOCUSATE SODIUM 100 MG CAP PO SCH (08:13)
[2018-10-10] MEDS: PRENATAL VITAMIN 1 TAB PO SCH (08:13)
[2018-10-10] MEDS: SIMETHICONE 80 MG CHEW PO SCH ×2 (08:17→13:05)
[2018-10-10] MEDS: BISACODYL 10 MG SUPP PR SCH (08:19)
[2018-10-10] MEDS: MAGNESIUM HYDROXIDE SUSP 30 ML UDC PO SCH (08:20)
--- NOTE | 2018-10-11 09:06 | Discharge Summary ---
Date of Service October 12, 2018 Discharge Data Consultations 10/06/18 20:27 Consult Anesthesiology Stat Procedures Performed Operation Date: 10/07/18 16:30 Actual Procedures p Section in LD. Low transverse uterine incision. Delivery of live male infant at 1919.(Bilateral) - Cristina Magdaleno DO Hospital Course (1) S/P : Admitted for SROM, labored to 9cm. Preeclampsia without severe features. Maternal request for due to uncontrolled pain. performed under general. Brian, ARIADNA wound dressing. Unremarkable postop course. DC home POD#3. Followup in office for incision check 7d. Discharge Instructions see instructions in discharge section
== END 2018-10-10 13:28 | disposition home or self-care (01) | DRG 787 ==
LOC: OPB 18:31 → 4S1 18:32 → 4S2 10-07 22:55
DX: Z68.42 Body mass index [BMI] 45.0-49.9, adult; O42.92 Full-term premature rupture of membranes, unspecified as to length of time between rupture and onset of labor; Z37.0 Single live birth; O99.214 Obesity complicating childbirth; O99.284 Endocrine, nutritional and metabolic diseases complicating childbirth; O24.424 Gestational diabetes mellitus in childbirth, insulin controlled; E03.9 Hypothyroidism, unspecified; Z3A.38 38 weeks gestation of pregnancy; E66.01 Morbid (severe) obesity due to excess calories; O14.94 Unspecified pre-eclampsia, complicating childbirth; Z79.4 Long term (current) use of insulin

== ENCOUNTER 2018-10-16 10:13 | Inpatient (IN) ==
[2018-10-16] MEDS ORDERED: ONDANSETRON INJ 2 MG/ML 2 ML VIAL IV STA ×2 (10:39→11:43)
[2018-10-16] MEDS ORDERED: SODIUM CHLORIDE 0.9% 1000ML 1,000 ML IV SCH (10:45)
[2018-10-16] MEDS: HYDROmorphone INJ 0.5 MG/0.5 ML SYR IV PRN ×7 (10:58→16:20)
[2018-10-16 11:04] LABS: Basophils # (auto) 0.02 K/uL (0-0.2); Basophils % (auto) 0.1 %; Eosinophils % (auto) 3.5 %; Hematocrit (blood only) 26.7 % (37-47); Hemoglobin 8.6 g/dL (12.0-16.0); Immature Granulocytes # (auto) 0.41 K/uL (0.00-0.02); Immature Granulocytes % (auto) 2.9 %; Lymphocytes # (auto) 1.59 K/uL (1.2-3.4); Lymphocytes % (auto) 11.1 %; Mean Corpuscular Hgb Conc 32.2 g/dL (32-36); Mean Corpuscular Volume 85.3 fL (80-100); Mean Platelet Volume 8.1 fL (7.4-10.4); Monocytes # (auto) 1.15 K/uL (0.11-0.59); Neutrophils % (auto) 74.4 %; Nucleated RBC # (auto) 0.03 K/uL (0-0); Nucleated RBC % (auto) 0.2 %; Platelet Count 409 K/uL (130-400); RDW Coefficient of Variation 15.4 % (11.5-14.5); RDW Standard Deviation 48.6 fL (36.4-46.3); Red Blood Count 3.13 M/uL (4.2-5.4); White Blood Count 14.37 K/uL (4.8-10.8)
[2018-10-16 11:18] LABS: Appearance Urine Clear (Clear); Bacteria Urine Automated Negative (Negative); Bilirubin Urine Negative (Negative); Blood Urine Trace (Negative); Cast Urine Automated 0 /lpf (0-5); Color Urine Yellow; Glucose Urine UA Negative (Negative); Ketones Urine Negative (Negative); Leukocyte Esterase Urine 1+ (Negative); Nitrite Urine Negative (Negative); Protein Urine 1+ (Negative); RBC Urine Automated 0-4 /hpf (0-4); Specific Gravity Urine 1.009 (1.000-1.030); Urobilinogen Urine Negative (Negative)
[2018-10-16 11:19] LABS: Albumin Level 2.3 gm/dl (3.4-5.0); BUN Creatinine Ratio 21.2 (10-20); Calcium 9.1 mg/dl (8.5-10.1); Creatinine Clr Calc Pharmacy 203.2 ml/min; Est GFR (African American) 148.7; Est GFR (Non-African American) 128.3; Potassium 3.7 mmol/L (3.5-5.1)
[2018-10-16 11:22] LABS: Albumin Globulin Ratio 0.5 (0.9-2); Bilirubin,Total 0.8 mg/dl (0.2-1); Globulin 4.6 gm/dl (2.5-4.0); Total Protein 6.9 gm/dl (6.4-8.2)
[2018-10-16 11:25] LABS: RBC Morphology Unremarkable
--- NOTE | 2018-10-16 11:27 | Emergency Department Note ---
Entered by Katerina Howard acting as a scribe for ED Provider Note CHIEF COMPLAINT: Drainage HISTORY OF PRESENT ILLNESS: The patient is a 27 year old female who presents to the Emergency Room with complaints of drainage from her wound over the last week. The patient reports that her discharge was originally clear and then became darker. She states that she is now bleeding and that it is painful. The patient states that her pain is constant and rates it at a 7/10. She also reports having vomiting and fevers and states that she was febrile at 100.4. The patient states that she is not currently on antibiotics. She reports that she has had 1 bowel movement per day. The patient states that she was referred here for her pain. Pt denies headache, diaphoresis, neck pain, chest pain, breathing difficulties, back pain, urinary symptoms, diarrhea, numbness, weakness, lymphadenopathy, rash, or other complaints. Review of EMR shows that the patient had a 10-07-18. She had a wound vacc placed to her incision that was removed 2 days ago. She has had continued drainage, nausea, vomiting, fevers, and chills. REVIEW OF SYSTEMS: See HPI for pertinent positives and negatives. A total of ten systems were reviewed and were otherwise negative. PMHx/PSHx: Anxiety, ADHD, Anemia, HTN affecting SOCIAL HISTORY: Patient lives at home. PHYSICAL EXAM: GENERAL: Awake, alert, uncomfortable-appearing, in no distress HENT: Normocephalic, atraumatic. Oropharynx unremarkable. EYES: Normal conjunctiva. Sclera non-icteric. NECK: Inspection normal. Non-tender. Supple. No nuchal rigidity. FROM. No masses. RESPIRATORY: Clear to auscultation. No wheezes. No rales. Normal respiratory effort. CARDIAC: Tachycardic rate. Normal rhythm. No murmurs. No rubs. Extremities warm and well perfused. Pulses equal. No JVD. GI: Soft, non-distended. No rebound or guarding. No masses. incision. Brian in place. Tender. Cloudy/bloody discharge noted. No significant surrounding erythema. RECTAL: Deferred. MUSCULOSKELETAL: Atraumatic. Chest examination reveals no tenderness. The back is symmetrical on inspection without obvious abnormality. There is no CVA ten derness to palpation. No joint edema. LOWER EXTREMITIES: Calves are equal size bilaterally and non-tender. No edema. No discoloration. NEURO: Normal sensorium. No sensory or motor deficits noted. SKIN: No rash or jaundice noted. EMERGENCY DEPARTMENT COURSE: 1028: Past medical records reviewed. The patient was evaluated in room C4, and a complete history and physical examination were performed. 1128: I reevaluated the patient. 1131: I spoke to Dr. Lopez-Mt[facility] OLIVA who said to place the patient on Augmentin and that he will see the patient in the office. 1454: I checked on the patient. She reports feeling slightly better after 6 doses of Dilaudid. 1457: I discussed the patient's case with Dr. Lopez who said that he will come see the patient. 1530: Dr. Lopez will admit the patient. 1540: I updated the patient who verbalized agreement and understanding of the treatment plan. MEDICAL DECISION MAKING: Prior records reviewed and summarized as above. Triage Nursing notes reviewed and agree them. Additional history obtained from the family. The patient's history was concerning for post operative abdominal pain, fever, and vomiting. Differential diagnosis: Etiologies such as seroma, hematoma, obstruction, intra-abdominal process, cellulitis, necrotizing fasciitis, abscess, MRSA infection, as well as others were entertained.. Physical examination: As above. The patient had some mild drainage. [place] are still in place. ER treatment provided: IV normal saline IV Zofran x2 IV Dilaudid 0.5 mg x7 doses IV Phenergan 25 mg IV Reglan 5 mg x2 IV Toradol IV Rocephin Diagnostics interpreted by me: The labs revealed a moderate leukocytosis and anemia on CBC. The white count is higher than prior. Her anemia is improving. Chemistry panel unremarkable. CT imaging revealed rectus hematoma. Postoperative changes noted. Infiltrative change noted to the abdominal wall as well. Despite multiple IV medications the patient is still symptomatic. She will need further management in the hospital. Consultation: A consultation was placed with the informatics nurse on-call, Dr. Lopez. The case was discussed and diagnostics were reviewed. The patient was evaluated in the ER for further treatment. IMPRESSION: Post-op fever, rectus hematoma, nausea and vomiting, leukocytosis PLAN: Being evaluated by [employer] The scribe's documentation has been prepared under my direction and personally reviewed by me in its entirety. I confirm that the note above accurately reflects all work, treatment, procedures, and medical decision making performed by me. Impression & Plan Postoperative fever, Rectus sheath hematoma, Nausea & vomiting, Leukocytosis Past Med/Surg History Medical History High cholesterol (Chronic) ADHD (Chronic) Anxiety (Chronic) Calculus of proximal right ureter (Acute) Renal colic (Acute) ASCUS with positive high risk HPV cervical Asthma Dental root implant present GERD (gastroesophageal reflux disease) Gestational diabetes Hypothyroidism Insomnia [place] teeth removed Surgical History Hx of breast reduction, elective Family History (Reviewed 10/16/18 @ : by Katerina Howard) Other Diabetes HTN (hypertension) Social History Preferred Language: Icelandic Beliefs That Will Affect Care: None marital status: Current Living Situation: Spouse Feels Safe at Home: Yes Smoking Status: Never smoker Hx Alcohol Use: No Hx Substance Use: No Results & Data Vital Signs Vital Signs - 24 hr 10/16/18 10:14 10/16/18 11:00 10/16/18 11:03 Temperature 36.9 C Temperature Source Oral Sepsis Recent Fever Within 48 Hours Yes Sepsis New/Unexplained Change in Mental Status No Sepsis Action Taken by Nursing No Action Required Pulse Rate 103 H 91 H Pulse Rate [Apical] 94 H Pulse Rate from SpO2 Sensor 91 H Pulse Rhythm Pulse Rhythm [Apical] Regular Pulse Strength [Apical] Respiratory Rate 20 18 20 Respiratory Effort / Characteristics Non-Labored Spontaneous Respiratory Depth Normal Normal Respiratory Pattern Regular Blood Pressure 159/91 H 157/80 H Blood Pressure [Left Arm] 157/107 H Blood Pressure Mean 113 105 Blood Pressure Mean [Left Arm] 123 Pulse Oximetry 99 98 96 Oxygen Delivery Method Room Air Room Air 10/16/18 11:07 10/16/18 11:09 10/16/18 11:30 Temperature Temperature Source Sepsis Recent Fever Within 48 Hours Sepsis New/Unexplained Change in Mental Status Sepsis Action Taken by Nursing Pulse Rate 92 H 95 H 94 H Pulse Rate [Apical] Pulse Rate from SpO2 Sensor 92 H 94 H Pulse Rhythm Regular Pulse Rhythm [Apical] Pulse Strength [Apical] Respiratory Rate 15 20 26 H Respiratory Effort / Characteristics Respiratory Depth Respiratory Pattern Blood Pressure 140/74 Blood Pressure [Left Arm] Blood Pressure Mean 96 Blood Pressure Mean [Left Arm] Pulse Oximetry 96 95 98 Oxygen Delivery Method Room Air 10/16/18 12:00 10/16/18 12:30 10/16/18 12:32 Temperature Temperature Source Sepsis Recent Fever Within 48 Hours Sepsis New/Unexplained Change in Mental Status Sepsis Action Taken by Nursing Pulse Rate 99 H 95 H 98 H Pulse Rate [Apical] 94 H Pulse Rate from SpO2 Sensor 99 H 95 H 99 H Pulse Rhythm Pulse Rhythm [Apical] Regular Pulse Strength [Apical] Respiratory Rate 21 20 19 Respiratory Effort / Characteristics Non-Labored Spontaneous Respiratory Depth Normal Respiratory Pattern Regular Blood Pressure 145/89 H 166/98 H 147/85 H Blood Pressure [Left Arm] 147/80 H Blood Pressure Mean 107 120 105 Blood Pressure Mean [Left Arm] 102 Pulse Oximetry 99 96 99 Oxygen Delivery Method Room Air 10/16/18 13:00 10/16/18 13:30 10/16/18 14:00 Temperature 38.0 C H Temperature Source Oral Sepsis Recent Fever Within 48 Hours Sepsis New/Unexplained Change in Mental Status Sepsis Action Taken by Nursing Pulse Rate 90 109 H 110 H Pulse Rate [Apical] 105 H Pulse Rate from SpO2 Sensor 92 H 109 H 110 H Pulse Rhythm Pulse Rhythm [Apical] Regular Pulse Strength [Apical] Respiratory Rate 32 H 32 H 28 H Respiratory Effort / Characteristics Non-Labored Spontaneous Respiratory Depth Normal Respiratory Pattern Regular Blood Pressure 147/90 H 147/84 H Blood Pressure [Left Arm] 147/84 H Blood Pressure Mean 109 105 Blood Pressure Mean [Left Arm] 105 Pulse Oximetry 95 92 98 Oxygen Delivery Method Room Air 10/16/18 14:48 10/16/18 15:00 10/16/18 15:01 Temperature Temperature Source Sepsis Recent Fever Within 48 Hours Sepsis New/Unexplained Change in Mental Status Sepsis Action Taken by Nursing Pulse Rate 106 H 106 H 103 H Pulse Rate [Apical] Pulse Rate from SpO2 Sensor Pulse Rhythm Pulse Rhythm [Apical] Pulse Strength [Apical] Respiratory Rate 18 26 H 25 H Respiratory Effort / Characteristics Respiratory Depth Respiratory Pattern Blood Pressure 126/85 176/99 H Blood Pressure [Left Arm] Blood Pressure Mean 98 124 Blood Pressure Mean [Left Arm] Pulse Oximetry Oxygen Delivery Method 10/16/18 15:28 10/16/18 16:01 10/16/18 16:02 Temperature Temperature Source Sepsis Recent Fever Within 48 Hours Sepsis New/Unexplained Change in Mental Status Sepsis Action Taken by Nursing Pulse Rate 107 H 114 H Pulse Rate [Apical] Pulse Rate from SpO2 Sensor Pulse Rhythm Pulse Rhythm [Apical] Pulse Strength [Apical] Respiratory Rate 17 27 H 37 H Respiratory Effort / Characteristics Respiratory Depth Respiratory Pattern Blood Pressure 135/83 172/114 H Blood Pressure [Left Arm] Blood Pressure Mean 100 139 133 Blood Pressure Mean [Left Arm] Pulse Oximetry Oxygen Delivery Method 10/16/18 16:46 10/16/18 16:48 10/16/18 17:00 Temperature Temperature Source Sepsis Recent Fever Within 48 Hours Sepsis New/Unexplained Change in Mental Status Sepsis Action Taken by Nursing Pulse Rate 107 H 107 H 110 H Pulse Rate [Apical] Pulse Rate from SpO2 Sensor Pulse Rhythm Pulse Rhythm [Apical] Pulse Strength [Apical] Respiratory Rate 25 H 25 H 20 Respiratory Effort / Characteristics Respiratory Depth Respiratory Pattern Blood Pressure 231/127 H 145/101 H 166/98 H Blood Pressure [Left Arm] Blood Pressure Mean 161 115 120 Blood Pressure Mean [Left Arm] Pulse Oximetry Oxygen Delivery Method 10/16/18 17:01 10/16/18 17:20 Temperature 38.9 C H Temperature Source Oral Sepsis Recent Fever Within 48 Hours Sepsis New/Unexplained Change in Mental Status Sepsis Action Taken by Nursing Pulse Rate 109 H Pulse Rate [Apical] 98 H Pulse Rate from SpO2 Sensor Pulse Rhythm Pulse Rhythm [Apical] Regular Pulse Strength [Apical] Normal Respiratory Rate 22 20 Respiratory Effort / Characteristics Respiratory Depth Respiratory Pattern Blood Pressure Blood Pressure [Left Arm] 166/89 H Blood Pressure Mean Blood Pressure Mean [Left Arm] 114 Pulse Oximetry Oxygen Delivery Method Home Medications Current Medication List: was personally reviewed by me Laboratory Data Attestation: I reviewed the patient's lab results. Result diagrams: 10/16/18 10:50 10/16/18 10:50 Lab Results 10/16/18 10/16/18 10/16/18 Range/Units 10:50 10:50 11:00 WBC 14.37 H (4.8-10.8) K/uL RBC 3.13 L (4.2-5.4) M/uL Hgb 8.6 L (12.0-16.0) g/dL Hct 26.7 L (37-47) % MCV 85.3 (80-100) fL MCH 27.5 (25-34) pg MCHC 32.2 (32-36) g/dL RDW Std Deviation 48.6 H (36.4-46.3) fL RDW Coeff of [place] 15.4 H (11.5-14.5) % Plt Count 409 H (130-400) K/uL MPV 8.1 (7.4-10.4) fL Immature Gran % (Auto) 2.9 % Neut % (Auto) 74.4 % Lymph % (Auto) 11.1 % [place] % (Auto) 8.0 % Eos % (Auto) 3.5 % Baso % (Auto) 0.1 % Immature Gran # (Auto) 0.41 H (0.00-0.02) K/uL Neut # (Auto) 10.70 H (1.4-6.5) K/uL Lymph # (Auto) 1.59 (1.2-3.4) K/uL [place] # (Auto) 1.15 H (0.11-0.59) K/uL Eos # (Auto) 0.50 (0-0.5) K/uL Baso # (Auto) 0.02 (0-0.2) K/uL Absolute Nucleated RBC 0.03 H (0-0) K/uL Nucleated RBC % (auto) 0.2 % RBC Morphology Unremarkable Sodium 141 (136-145) mmol/L Potassium 3.7 (3.5-5.1) mmol/L Chloride 106 (98-107) mmol/L Carbon Dioxide 25 (21-32) mmol/L Anion Gap 10.0 (3-11) BUN 11 (7-18) mg/dl Creatinine 0.53 L (0.6-1.2) mg/dl Est Cr Clr Drug Dosing 203.2 ml/min Est GFR ( Amer) 148.7 Est GFR (Non-Af Amer) 128.3 BUN/Creatinine Ratio 21.2 H (10-20) Glucose 105 H (70-99) mg/dl Calcium 9.1 (8.5-10.1) mg/dl Total Bilirubin 0.8 (0.2-1) mg/dl AST 21 (15-37) U/L ALT 17 (12-78) U/L Alkaline Phosphatase 146 H (45-117) U/L Total Protein 6.9 (6.4-8.2) gm/dl Albumin 2.3 L (3.4-5.0) gm/dl Globulin 4.6 H (2.5-4.0) gm/dl Albumin/Globulin Ratio 0.5 L (0.9-2) Urine Color Yellow Urine Appearance Clear (Clear) Urine pH 7.0 (4.5-7.5) Ur Specific [place] 1.009 (1.000-1.030) Urine Protein 1+ H (Negative) Urine Glucose (UA) Negative (Negative) Urine Ketones Negative (Negative) Urine Blood Trace H (Negative) Urine Nitrite Negative (Negative) Urine Bilirubin Negative (Negative) Urine Urobilinogen Negative (Negative) Ur Leukocyte Esterase 1+ H (Negative) Urine WBC (Auto) 1-5 (0-5) /hpf Urine RBC (Auto) 0-4 (0-4) /hpf U Hyaline Cast (Auto) 0 (0-5) /lpf U Epithel Cells (Auto) 10-20 H (0-5) /lpf Urine Bacteria (Auto) Negative (Negative) Administered Medications Acetaminophen (Tylenol) 650 mg PO Q4H PRN PRN Reason: Pain or Fever Stop: 11/15/18 15:27 Last Admin: 10/16/18 17:19 Dose: 650 mg Documented by: [id number] Hydromorphone HCl (Dilaudid) 0.5 mg IV Q15M PRN PRN Reason: Pain Stop: 10/30/18 10:38 Last Admin: 10/16/18 16:20 Dose: 0.5 mg Documented by: [id number] Admin: 10/16/18 14:51 Dose: 0.5 mg Documented by: [id number] Admin: 10/16/18 13:45 Dose: 0.5 mg Documented by: [id number] Admin: 10/16/18 12:41 Dose: 0.5 mg Documented by: [id number] Admin: 10/16/18 12:03 Dose: 0.5 mg Documented by: [id number] Admin: 10/16/18 11:31 Dose: 0.5 mg Documented by: [id number] Admin: 10/16/18 10:58 Dose: 0.5 mg Documented by: [id number] Lactated Ringer's (Lr) 1,000 mls @ 125 mls/hr IV .Q8H AMARIS Stop: 11/15/18 15:29 Last Admin: 10/16/18 16:49 Dose: 125 mls/hr Documented by: [id number] Ioversol (Optiray 320 100ml) 94 ml IV ONCE PRN PRN Reason: Interaction Checking Stop: 10/20/18 14:26 Last Admin: 10/16/18 14:28 Dose: 94 ml Documented by: [id number] Ketorolac Tromethamine (Toradol) 30 mg IV Q6H PRN PRN Reason: Pain Stop: 10/21/18 15:37 Last Admin: 10/16/18 16:43 Dose: 30 mg Documented by: [id number] Ondansetron HCl (Zofran) 4 mg IV Q6H PRN PRN Reason: Nausea And Vomiting Stop: 11/15/18 15:27 Last Admin: 10/16/18 16:42 Dose: 4 mg Documented by: [id number] Discontinued Medications Sodium Chloride (Nss 1000ml) 1,000 mls @ 999 mls/hr IV .Q1H1M AMARIS Stop: 10/16/18 11:45 Last Infusion: 10/16/18 12:02 Dose: 0 mls/hr Documented by: [id number] Admin: 10/16/18 10:58 Dose: 999 mls/hr Documented by: [id number] Promethazine HCl (Phenergan) 25 mg in 51 mls @ 204 mls/hr IV NOW STA Stop: 10/16/18 12:33 Last Infusion: 10/16/18 12:40 Dose: 0 mls/hr Documented by: [id number] Admin: 10/16/18 12:25 Dose: 204 mls/hr Documented by: [id number] Ceftriaxone Sodium (Rocephin) 1,000 mg in 50 mls @ 100 mls/hr IV NOW STA Stop: 10/16/18 12:48 Last Infusion: 10/16/18 13:23 Dose: 0 mls/hr Documented by: [id number] Admin: 10/16/18 12:42 Dose: 100 mls/hr Documented by: [id number] Ketorolac Tromethamine (Toradol) 10 mg IV NOW ONE Stop: 10/16/18 14:04 Last Admin: 10/16/18 14:18 Dose: 10 mg Documented by: [id number] Metoclopramide HCl (Reglan) 5 mg IV ONE ONE Stop: 10/16/18 14:04 Last Admin: 10/16/18 14:18 Dose: 5 mg Documented by: [id number] Ondansetron HCl (Zofran) 4 mg IV NOW STA Stop: 10/16/18 10:40 Last Admin: 10/16/18 10:58 Dose: 4 mg Documented by: [id number] Ondansetron HCl (Zofran) 4 mg IV NOW STA Stop: 10/16/18 11:44 Last Admin: 10/16/18 11:51 Dose: 4 mg Documented by: [id number] Imaging Data Radiologist's Impression: Radiology results as stated below per my review and the radiologist's interpretation: CT abd pelvis IV con only CT DOSE: 1633.58 mGy.cm HISTORY: Pain lower abd pain, recent , wound drainage TECHNIQUE: Multiaxial CT images of the abdomen and pelvis were performed following the use of intravenous contrast. A dose lowering technique was utilized adhering to the principles of ALARA. COMPARISON STUDY: 09/20/2017 FINDINGS: Lung bases are clear. There is moderate hepatosplenomegaly. Pancreas is unremarkable. Kidneys contain several nonobstructing calcifications. There is no evidence for an obstructing urinary tract calculus. Bladder is midline. Uterus is bulky consistent with patient's recent recent . Bowel pattern is consistent with a generalized nonobstructive ileus. Findings of mild edematous change of the subcutaneous fat seen circumferentially about the anterior pelvic wall. Several small air bubbles are present anterior to the lower rectus musculature presumably on a postoperative basis. The lower rectus musculature is symmetric and enlarged. Anterior to posterior dimension rectus thickness is 4.6 cm on the right and 3.9 cm on the left. This appearance demonstrates the musculature to be heterogeneous suggesting potential postprocedural hematoma-type change. IMPRESSION: 1. Bulky uterus consistent with a recent . 2. Bulky and thickened anterior rectus musculature of the low pelvic region suggesting bilateral rectus hematomas. 3. Increased fat density circumferentially about the lower pelvis presumably on a postoperative basis. 4. Infiltrative change in the midline with several small air bubbles suggestive of post procedural operative change. 5. A well-defined drainable abscess or collection is not appreciated, although the patient should be closely watched with a potential rescan with oral contrast at a later date to ensure complete resolution and exclude a residual collection. The above report was generated using voice recognition software. It may contain grammatical, syntax or spelling errors. Electronically signed by: Justyn Martin M.D. 10/16/2018 2:47 PM Blood Pressure Blood Pressure Findings: Elevated blood pressure Blood Pressure Disposition: further management by hospitalist Discharge Plan Visit Data Chief Complaint: Infection, Wound Stated Complaint: C SECTION DRAINING,FEVER,VOMITING ED Provider: Eric Rocha Discharge Problem: Postoperative fever, Rectus sheath hematoma, Nausea & vomiting, Leukocytosis Discharge Instructions Interventions: ED Discharge Assessment Last Done: 10/16/18 17:11 Forms Stand Alone Forms: [facility] Prescriptions Prescriptions: No Action paroxetine HCl 10 mg tablet 10 mg PO HS RF: 0 levothyroxine 100 mcg tablet 125 mcg PO QAM RF: 0 ergocalciferol (vitamin D2) 50,000 unit capsule 50,000 units PO WK RF: 0 PNV cmb#[id number]-[id number] fumarate-FA [] 28 mg iron- 800 mcg Tablet 1 tab PO DAILY RF: 0 famotidine 20 mg Tablet 20 mg PO HS PRN (Reason: Indigestion) RF: 0 [id number] [Fioricet] 50-300-40 mg Capsule 1 - 2 cap PO Q4H PRN (Reason: Headache) RF: 0 promethazine 25 mg Tablet 25 mg PO Q6H PRN (Reason: Nausea) RF: 0 albuterol sulfate 2.5 mg /3 mL (0.083 %) Solution For Nebulization 1.25 mg INHALATION QID PRN (Reason: Shortness Of Breath Or Wheezing) RF: 0 epinephrine 0.3 mg/0.3 mL auto-injector 0.3 mg IM UD PRN (Reason: Allergic Reaction) RF: 0 albuterol sulfate 90 mcg/actuation Hfa Aerosol Inhaler 2 puff INHALATION Q6H PRN (Reason: Shortness Of Breath Or Wheezing) RF: 0 [place] 3-6-9 Fatty Acids 400-400-200 mg Capsule 1 cap PO DAILY RF: 0 eszopiclone [Lunesta] 1 mg Tablet 1 mg PO HS RF: 0 Referrals Referrals: Thien Gonzales DO [Primary Care Provider] - Discharge Problem: Rectus sheath hematoma Qualifiers: Encounter type: initial encounter Qualified Code(s): S30.1XXA - Contusion of abdominal wall, initial encounter Nausea & vomiting Qualifiers: Vomiting type: unspecified Vomiting Intractability: intractable Qualified Code(s): R11.2 - Nausea with vomiting, unspecified Leukocytosis Qualifiers: Leukocytosis type: unspecified Qualified Code(s): D72.829 - Elevated white blood cell count, unspecified The scribe's documentation has been prepared under my direction and personally reviewed by me in its entirety. I confirm that the note above accurately reflects all work, treatment, procedures, and medical decision making performed by me.
[2018-10-16] MEDS ORDERED: cefTRIAXone SODIUM 1,000 MG/50 ML BAG IV STA (12:19)
[2018-10-16] MEDS ORDERED: PROMETHAZINE 25 MG/51 ML BAG IV STA (12:19)
[2018-10-16] MEDS ORDERED: METOCLOPRAMIDE HCL INJ 5 MG/ML 2 ML VIAL IV ONE ×2 (14:03→17:14)
[2018-10-16] MEDS ORDERED: KETOROLAC TROMETHAMINE 15 MG/ML VIAL IV ONE (14:03)
[2018-10-16] MEDS ORDERED: IOVERSOL 100ml IV PRN (14:27)
--- NOTE | 2018-10-16 14:49 | CT Scan Report ---
CT abd pelvis IV con only CT DOSE: 1633.58 mGy.cm HISTORY: Pain lower abd pain, recent , wound drainage TECHNIQUE: Multiaxial CT images of the abdomen and pelvis were performed following the use of intrave nous contrast. A dose lowering technique was utilized adhering to the principles of ALARA. COMPARISON STUDY: 09/20/2017 FINDINGS: Lung bases are clear. There is moderate hepatosplenomegaly. Pancreas is unremarkable. Kidne ys contain several nonobstructing calcifications. There is no evidence for an obstructing urinary tra ct calculus. Bladder is midline. Uterus is bulky consistent with patient's recent recent . Bowel pattern is consistent with a generalized nonobstructive ileus. Findings of mild edematous change of the subcutaneous fat seen circumferentially about the anterior p elvic wall. Several small air bubbles are present anterior to the lower rectus musculature presumably on a postoperative basis. The lower rectus musculature is symmetric and enlarged. Anterior to posterior dimension rectus thickn ess is 4.6 cm on the right and 3.9 cm on the left. This appearance demonstrates the musculature to be heterogeneous suggesting potential postprocedural hematoma-type change. IMPRESSION: 1. Bulky uterus consistent with a recent . 2. Bulky and thickened anterior rectus musculature of the low pelvic region suggesting bilateral rect us hematomas. 3. Increased fat density circumferentially about the lower pelvis presumably on a postoperative basis . 4. Infiltrative change in the midline with several small air bubbles suggestive of post procedural op erative change. 5. A well-defined drainable abscess or collection is not appreciated, although the patient should be closely watched with a potential rescan with oral contrast at a later date to ensure complete resolut ion and exclude a residual collection. The above report was generated using voice recognition software. It may contain grammatical, syntax or spelling errors. Electronically signed by: Justyn Martin M.D. 10/16/2018 2:47 PM
[2018-10-16] MEDS ORDERED: ACETAMINOPHEN 325 MG TAB PO PRN (15:28)
[2018-10-16] MEDS: ONDANSETRON INJ 2 MG/ML 2 ML VIAL IV PRN (16:42)
[2018-10-16] MEDS: KETOROLAC 30 MG/ML VIAL IV PRN ×2 (16:43→23:57)
[2018-10-16] MEDS: LACTATED RINGER'S 1,000 ML IV SCH ×2 (16:49→23:44)
[2018-10-16] MEDS ORDERED: ALBUTEROL 0.083% NEBU SOLN 3 ML VIAL INH PRN (18:00)
[2018-10-16] MEDS ORDERED: ALBUTEROL HFA 8 GM INHALER INH PRN (18:00)
--- NOTE | 2018-10-16 18:40 | History and Physical Report ---
DATE OF ADMISSION: 10/16/2018 ADMITTING DIAGNOSIS: Postoperative wound infection. ADMISSION HISTORY: The patient is a 27-year-old 1, para 1, status post a primary section on 10/07, who is admitted from the Emergency Room with a postoperative wound infection. The patient had been seen in the office on 10/14 and had a wound site removed, but leyla remained in place. The patient states over the weekend she began to drain a bloody fluid from the incision and was spiking temperatures at home greater than 100.4. The patient came to the Emergency Room and was evaluated there. Evaluation included a CT of the abdomen and pelvis as well as IV fluid, pain medication, and antibiotics. The patient's symptoms could not be controlled and she has been admitted for parenteral antibiotics and wound care. PAST MEDICAL HISTORY: Obstetrical section for failure to progress on 10/07. [employer] history of abnormal Pap smears. Medical: Hypothyroidism, anxiety. SURGICAL: Breast reduction surgery, kidney stone removal, wisdom teeth extraction. ALLERGIES: No known drug allergies. SOCIAL HISTORY: No smoking. FAMILY HISTORY: Noncontributory. REVIEW OF SYSTEMS: As per HPI. ADMISSION PHYSICAL EXAMINATION: GENERAL APPEARANCE: Shows a morbidly obese female, uncomfortable but in no acute distress. VITAL SIGNS: Blood pressure 147/84 and a temp of 38.0 centigrade. HEENT: Unremarkable. NECK: Supple. LUNGS: Clear. HEART: With a regular rhythm and rate. ABDOMEN: Obese. The incision shows a Pfannenstiel type incision with superficial erythema and drainage of fluid. Surgical leyla are removed. Separation of the subcutaneous tissue to a depth of 3 cm, pocket probed for a copious amount of serous bloody fluid, cultures obtained. EXTREMITIES: Shows no deep calf tenderness. NEUROLOGIC: Grossly intact. ADMISSION LABORATORY VALUES: Show a white count of 14.37, H and H of 8.6 and 26.7. IMPRESSION: A 27-year-old 1, para 1, 10 days postoperative with wound infection. PLAN: Conservative management in the Emergency Room was unsuccessful. The patient is febrile with nausea and vomiting. She cannot tolerate p.o. antibiotics. The wound was superficially opened and packed. The patient will be started on IV Rocephin 1 g q.12 hours. Wound care has been consulted for further management and evaluation. Further management plans pending treatment response.
[2018-10-16] MEDS: MEPERIDINE HCL 50 MG/ML CARP IV PRN (19:44)
[2018-10-16] MEDS ORDERED: PIPERACILL/TAZOBAC CONSULT ACTIVE PRN (20:21)
[2018-10-16] MEDS ORDERED: PIPERACILLIN/TAZOBACTAM 3.375 GM in DEXTROSE 5% 100 ML IV SCH (20:30)
[2018-10-16] MEDS: PARoxetine HCl 10 MG TAB PO SCH (20:57)
[2018-10-16] MEDS ORDERED: PIPERACILLIN/TAZOBACTAM 3.375 GM in DEXTROSE 5% 100 ML IV ONE (21:00)
[2018-10-17] MEDS: ONDANSETRON INJ 2 MG/ML 2 ML VIAL IV PRN ×4 (00:09→20:11)
[2018-10-17] MEDS ORDERED: PIPERACILLIN/TAZOBACTAM 3.375 GM in DEXTROSE 5% 100 ML IV SCH (02:00)
[2018-10-17] MEDS: MEPERIDINE HCL 50 MG/ML CARP IV PRN ×2 (04:16→09:42)
[2018-10-17] MEDS ORDERED: cefTRIAXone SODIUM 2,000 MG in DEXTROSE 5% 50 ML IV SCH (06:00)
--- NOTE | 2018-10-17 06:17 | Gynecologic Progress Note ---
Date of Service October 17, 2018 Assessment & Plan (1) Wound infection following section, : Patient on IV Zosyn. Last temperature spike at 0000 hours. Patient with mildly elevated blood pressure that is felt to be pain related and not chemical sales representative of preeclampsia. Awaiting wound care to see the patient management options. We will continue with the IV antibiotics and pain control. All questions answered to the patient. Subjective Patient still complaining of abdominal pain with nausea Physical Exam Vital Signs (Past 24 Hours): Last Vital Signs Temp 37.4 C 10/17/18 03:55 Pulse 92 H 10/17/18 03:55 Resp 20 10/17/18 03:55 BP 145/96 H 10/17/18 03:55 Pulse Ox 96 10/17/18 03:55 Constitutional: WD/WN, vitals as above Gastrointestinal (Abdomen): Percussion/Palpation: abdomen soft No uterine tenderness, all tenderness over incision dressing in place
[2018-10-17] MEDS ORDERED: LEVOTHYROXINE SODIUM 100 MCG TABLET PO SCH (06:30)
[2018-10-17 06:40] LABS: Basophils # (auto) 0.01 K/uL (0-0.2); Basophils % (auto) 0.1 %; Eosinophils # (auto) 0.52 K/uL (0-0.5); Eosinophils % (auto) 3.7 %; Hematocrit (blood only) 23.5 % (37-47); Hemoglobin 7.5 g/dL (12.0-16.0); Immature Granulocytes # (auto) 0.31 K/uL (0.00-0.02); Immature Granulocytes % (auto) 2.2 %; Lymphocytes # (auto) 2.38 K/uL (1.2-3.4); Lymphocytes % (auto) 16.8 %; Mean Corpuscular Hgb Conc 31.9 g/dL (32-36); Mean Corpuscular Volume 83.9 fL (80-100); Mean Platelet Volume 8.3 fL (7.4-10.4); Monocytes # (auto) 0.95 K/uL (0.11-0.59); Monocytes % (auto) 6.7 %; Neutrophils # (auto) 10.01 K/uL (1.4-6.5); Neutrophils % (auto) 70.5 %; Nucleated RBC # (auto) 0.05 K/uL (0-0); Nucleated RBC % (auto) 0.3 %; Platelet Count 387 K/uL (130-400); RDW Coefficient of Variation 15.6 % (11.5-14.5); RDW Standard Deviation 48.4 fL (36.4-46.3); White Blood Count 14.18 K/uL (4.8-10.8)
[2018-10-17] MEDS: KETOROLAC 30 MG/ML VIAL IV PRN (06:50)
[2018-10-17] MEDS: LEVOTHYROXINE SODIUM 125 MCG TABLET PO SCH (06:50)
[2018-10-17 07:02] LABS: Polychromasia 1+
[2018-10-17] MEDS: PIPERACILLIN/TAZOBACTAM 3.375 GM in DEXTROSE 5% 100 ML IV SCH ×3 (10:08→22:13)
[2018-10-17] MEDS: HYDROCODONE/ACETAMOPHEN 5/325MG TAB PO PRN ×3 (11:56→20:10)
[2018-10-17] MEDS ORDERED: ESZOPICLONE 1 MG TAB PO PRN (12:19)
[2018-10-17] MEDS: LACTATED RINGER'S 1,000 ML IV SCH (14:34)
[2018-10-17] MEDS: PARoxetine HCl 10 MG TAB PO SCH (20:20)
[2018-10-18] MEDS: HYDROCODONE/ACETAMOPHEN 5/325MG TAB PO PRN ×4 (01:02→15:34)
[2018-10-18] MEDS: PIPERACILLIN/TAZOBACTAM 3.375 GM in DEXTROSE 5% 100 ML IV SCH ×3 (04:05→15:31)
[2018-10-18] MEDS: LEVOTHYROXINE SODIUM 125 MCG TABLET PO SCH (06:00)
[2018-10-18] MEDS: ONDANSETRON INJ 2 MG/ML 2 ML VIAL IV PRN (06:32)
--- NOTE | 2018-10-18 08:23 | Gynecologic Progress Note ---
Date of Service October 18, 2018 Assessment & Plan (1) Wound infection following section, : wound culture is growing out alpha strep not enterococcus with no sensitivities to follow. Next dose of Zosyn is due at 1000. will switch to Augmentin this afternoon & discharge to home on Augmentin. (2) Postoperative fever: Subjective Feeling better this morning. still gets pain when she is moving & walking. Adify has been working well for the pain. Nausea is better, no vomiting. Wound vac was placed yesterday. Review of Systems All systems reviewed & are unremarkable except as noted in HPI & below Physical Exam Vital Signs (Past 24 Hours): Last Vital Signs Temp 37.3 C 10/18/18 03:30 Pulse 98 H 10/18/18 03:30 Resp 20 10/18/18 03:30 BP 157/85 H 10/18/18 03:30 Pulse Ox 96 10/18/18 03:30 Constitutional: WD/WN, vitals as above Gastrointestinal (Abdomen): Inspection/Auscultation: + abdominal surgical incision (slight redness superior to the incision. wound vac is in place)
[2018-10-18 08:26] LABS: Basophils # (auto) 0.03 K/uL (0-0.2); Basophils % (auto) 0.2 %; Eosinophils # (auto) 0.61 K/uL (0-0.5); Eosinophils % (auto) 4.3 %; Hematocrit (blood only) 24.1 % (37-47); Hemoglobin 7.8 g/dL (12.0-16.0); Immature Granulocytes # (auto) 0.35 K/uL (0.00-0.02); Immature Granulocytes % (auto) 2.5 %; Lymphocytes # (auto) 2.35 K/uL (1.2-3.4); Lymphocytes % (auto) 16.5 %; Mean Corpuscular Hgb Conc 32.4 g/dL (32-36); Mean Corpuscular Volume 84.3 fL (80-100); Mean Platelet Volume 8.4 fL (7.4-10.4); Monocytes # (auto) 0.84 K/uL (0.11-0.59); Monocytes % (auto) 5.9 %; Neutrophils % (auto) 70.6 %; Platelet Count 363 K/uL (130-400); RDW Coefficient of Variation 15.5 % (11.5-14.5); RDW Standard Deviation 48.4 fL (36.4-46.3); Red Blood Count 2.86 M/uL (4.2-5.4); White Blood Count 14.28 K/uL (4.8-10.8)
[2018-10-18] MEDS ORDERED: HYDROCODONE/ACETAMOPHEN 5/325MG TAB PO PRN (08:38)
[2018-10-18 09:02] LABS: Creatinine Clr Calc Pharmacy 211.2 ml/min; Est GFR (African American) > 150.0; Est GFR (Non-African American) 129.9
[2018-10-18] MEDS ORDERED: AMOXICILLIN/CLAVULANATE 500 MG TAB PO SCH ×2 (17:00)
--- NOTE | 2018-10-19 09:08 | Discharge Summary ---
Date of Service October 20, 2018 Discharge Data Consultations 10/16/18 16:11 ED Decision to Admit Stat 10/17/18 10:03 Consult Case Management - Discharge Planning Routine
--- NOTE | 2018-10-19 13:34 | Discharge Summary ---
ADMITTING DIAGNOSIS: Postoperative wound infection. DISCHARGE DIAGNOSIS: Postoperative wound infection. PROCEDURES PERFORMED: Application of wound VAC. DISCHARGE MEDICATIONS: Augmentin 500 mg 1 p.o. b.i.d. for 7 days. ADMISSION HISTORY: The patient is a 27-year-old 1, para 1, status post a primary section on October 07 who was admitted from the Emergency Room with a postoperative wound infection. The patient had been seen in the office on 10/14 and had her wound site removed with leyla remained in place. The patient states over the weekend, she began to drain a bloody fluid from the incision and was spiking temperatures at home to greater than 100.4. The patient came to the Emergency Room and was evaluated there. Evaluation included a CT of the abdomen and pelvis as well as IV fluid, pain medication, and antibiotics. The patient's symptoms could not be controlled and she has been admitted for parenteral antibiotics and wound care. PHYSICAL EXAMINATION: GENERAL: Showed a morbidly obese female, uncomfortable, but in no acute distress. VITAL SIGNS: Showed a blood pressure of 147/84 and a temp of 38.0. HEENT: Unremarkable. NECK: Supple. LUNGS: Clear. HEART: With a regular rhythm and rate. ABDOMEN: Obese. The incision showed a Pfannenstiel type incision with superficial erythema and drainage of fluid. PELVIC: Surgical leyla are removed. Separation of the subcutaneous tissue to a depth of 3 cm, pocket probe for a copious amount of serous bloody fluid cultures obtained. EXTREMITIES: Showed no deep calf tenderness. NEUROLOGIC: Grossly intact. ADMISSION LABORATORY VALUES: Showed a white count of 14,000 and H and H of 8.6 and 26.7. HOSPITAL COURSE: The patient was felt to have a wound infection. Cultures had been sent and she was started on Zosyn IV 3.75 mg q. 8 hours. There was a wound clinic consult that was obtained on the first hospital day. They thought the patient was a candidate for a wound VAC, which was applied. On the IV Zosyn, the patient defervesced. On the second hospital day, she was switched over to Augmentin and remained afebrile. By the end of the second hospital day, she was discharged home on the Augmentin. She is scheduled to follow up with both the wound clinic and outpatient [facility] for followup. All instructions given to the patient, told to call with any questions, problems or difficulties.
== END 2018-10-18 17:50 | disposition home health service (06) | DRG 776 ==
LOC: 4N 10:13 → ED 10:13 → 4N 17:11